=== PATIENT | male | born 1960 | race Caucasian/White ===

== ENCOUNTER 2019-07-16 08:41 | Outpatient (CLI) | payer MEDICARE, MEDICAID, SELFPAY ==
--- NOTE | 2019-07-16 08:57 | CT_ITS ---
WS: [id number] CT scan of the of the abdominal aorta and distal runoff into the lower extremities.. Additional two-d imensional coronal and sagittal reconstruction was performed. MIP images were also performed. 07/16/19 Clinical Data: MODERATE TO SEVERE LEG PAIN Comparison: None. DLP: 1666.[address] scans at [facility] use at least one of these dose optimization techniques: automat ed exposure control; mA and/or kV adjustment per patient size (includes targeted exams where dose is matched to clinical indication); or iterative reconstruction. Findings: Arterial findings: Abdominal aorta is normal in size with calcification in the wall. There is no aneu rysm present. The runoff into the internal and external iliac arteries is normal with further runoff into the deep and superficial femoral arteries. There is calcification of the wall of of all the hailey malissa of the pelvis and lower extremities. The superficial femoral arteries become the popliteal arter ies and then the arteries of the trifurcations of the legs are seen. There is arterial flow seen int o the midcalf portion of both legs.. Below the midportion of both legs there is diminutive flow in th e left leg and no definite flow in the right leg. Abdominal and pelvic findings: The lungs show the changes of chronic lung disease. No nodules, masses or effusions are seen. The yousif er shows probable cysts in the anterior left lobe and 2 small cysts in the posterior aspect of the ri ght lobe. The spleen, pancreas, gallbladder and adrenal glands are normal. The kidneys show equal ashley ateral contrast excretion with small bilateral cortical cysts but no hydronephrosis, mass or renal ca lculi. The small bowel, colon and stomach show no abnormalities. There is no evidence of appendicitis or diverticulitis. There is a large amount of stool in the colon. No abscess, adenopathy, ascites, m ass, obstruction or free air is seen. In the pelvis the bladder is distended. Prostate is enlarged. No inguinal hernia is noted. The bones of the lower thorax and lumbar spine show osteoarthritis. The patient has had a fusion of the bones of the right foot involving the cuboid, cuneiforms and base of the right first metatarsal. CT/CT angio abd aorta runof [id number] Impression: 1. Negative for abdominal aortic aneurysm. 2. No occlusions or stenoses of the arteries of the abdomen or proximal leg. 3. Poor circulation below the middle of both legs. 4. Atherosclerotic change of the abdominal aorta and all the arteries of the pe lvis and lower extremities. 5. Negative for acute intra-abdominal or pelvic abnormalities.
--- NOTE | 2019-07-16 08:57 | CT_ITS ---
WS: [id number] CT of the lumbar spine, additional two-dimensional coronal and sagittal imaging was obtained. 07/16/19 Clinical Data: L LEG WEAKNESS/LOW BACK PAIN Comparison: MRI of the lumbar spine, 06/11/2007. DLP: 2448.[address] scans at [facility] use at least one of these dose optimization techniques: automat ed exposure control; mA and/or kV adjustment per patient size (includes targeted exams where dose is matched to clinical indication); or iterative reconstruction. Findings: There is osteoarthritic change of the lumbar vertebral bodies. Degenerative disc disease at L5-S1 is seen. There are no compression fractures. There is calcification in the wall of the abdomin al aorta but no aneurysm is present. There is a low density area in the lateral aspect of the left ki dney which may represent a cyst. T12-L1: No canal stenosis, disc bulge or foraminal narrowing is seen. L1-L2: There is facet joint hypertrophy without a disc bulge causing mild foraminal stenosis. L2-L3: There is a small central disc bulge with facet joint hypertrophy causing mild canal and forami nal stenosis. L3-L4: There is a minimal central disc bulge with facet joint hypertrophy causing mild canal and fora sharlene stenosis. L4-L5: There is moderate posterior bulging of the disc with facet joint hypertrophy causing canal and foraminal stenosis. L5-S1: There is posterior disc bulging with facet joint hypertrophy causing foraminal and canal steno sis. CT/CT lumbar spine wo con* [id number] Impression: 1. Multilevel disc bulging and facet joint hypertrophy causing canal and forami nal stenosis. 2. Degenerative disc changes at L5-S1. 3. Osteoarthritis of all the lumbar vertebral bodies.
--- NOTE | 2019-07-16 08:57 | CT_ITS ---
WS: [id number] CT scan of the chest without IV contrast, additional two-dimensional coronal and sagittal reconstruct ion was performed. 07/16/2019 Clinical Data: NICOTINE DEPENDENCE Comparison: None. DLP: 775.[address] scans at [facility] use at least one of these dose optimization techniques: automat ed exposure control; mA and/or kV adjustment per patient size (includes targeted exams where dose is matched to clinical indication); or iterative reconstruction. Findings: No nodules, masses or effusions are seen. There is minimal coronary artery calcification. The heart s ize is normal with no pericardial effusion. The pulmonary arterial system and thoracic aorta demonstr ate no abnormalities or dilatations. There is no axillary or significant mediastinal adenopathy. As a small hiatal hernia. The upper abdomen shows low density areas in the liver which are most likely cysts, one in the left l obe and 2 others in the posterior aspect of the right lobe. There is a low density area in the latera l aspect of the left kidney probably a cyst. Degenerative arthritis with spurring of the thoracic mohit tebral bodies seen. CT/CT chest wo con [id number] Impression: 1 Negative for lung nodules or masses. 2. Negative for acute cardiopulmonary disease.
[2019-07-16] MEDS: iohexol 350 mg/mL 100 mL Btl IV (10:17)
== END 2019-07-16 08:42 | disposition home or self-care (01) ==
LOC: RAD 08:53
PROVIDERS: Family Provider Family Medicine; PCP Nurse Practitioner Family; Visit Provider Nurse Practitioner Family
DX: I70.90 Unspecified atherosclerosis (principal); F17.210 Nicotine dependence, cigarettes, uncomplicated; M54.42 Lumbago with sciatica, left side; M47.816 Spondylosis without myelopathy or radiculopathy, lumbar region
CPT/HCPCS: 71250; 72131; 75635

== ENCOUNTER 2019-08-16 07:26 | Day surgery (SDC) | payer MEDICARE, MEDICAID, SELFPAY ==
[2019-08-12 10:03] VITALS: BMI 20.9
--- NOTE | 2019-08-16 07:33 | P.ANESASSM_ITS ---
Pre-Anesthetic Assessment Pre-Anesthetic Assessment: Height/Weight: Height 1.98 m Weight 82.1 kg Preop Diagnosis: Colon CA screening Proposed Procedure: Operation Date: 08/16/19 10:00 Proposed Procedures p Colonoscopy G0104 Z12.11(Not Applicable) - Laz Jefferson MD Last Intake: 22:30 Social: Social History: Tobacco Packs per day: 1/2 Pack years: 25 Exam: Pre-Anes Outpt Exam: alert, oriented x 3, clear to auscultation b ilaterally and regular rate & rhythm Airway: Submandibular: WNL Cervical ROM: WNL MP: 1 Additional comments: upper edentulous, very poor CV/HEM: CV/HEM: HTN Comments: rx'd 18y 2 blocks/2FOS without angina/CAT Hepatic: Hepatic: Hepatitis Comments: dx 3 weeks, started therapy GI: GI: GERD Comments: well controlled on Nexium Metabolic: Metabolic: DM Comments: rx'd 16y, normally does not follow Musc/skel: Musc/skel: Lower Back Pain Comments: left radiculopathy Anesthetic Plan: ASA status: 3 Anesthesia: MAC PFSH Anesthesia PFSH: Social History (Updated 08/04/19 @ 10:44 by PUJA Delgado) Smoking and tobacco status: current every day smoker Alcohol intake: former Adopted: No Lives independently: Yes Marital status: / Number of children: 2 Number of grandchildren: 2 History of recent travel: No Current gender identity: Male Data Anesthesia Cardiac Studies: No Data to Display
[2019-08-16 07:53] VITALS: BP 148/85; PULSE 105; RESP 16; TEMP 36.5; O2SAT 98
[2019-08-16] MEDS: sodium chloride 0.9% 1,000 ML 30 ML (08:07)
[2019-08-16 08:40] LABS: Glucose Point of Care 232 mg/dL (70-110)
--- NOTE | 2019-08-16 09:27 | W.PM.OPSUD ---
Surgery/Procedure H&P Update DATE OF PROCEDURE: August 16, 2019 DATE H&P PERFORMED: 08/02/19 PREOP DIAGNOSIS: c PLANNED PROCEDURE: Operation Date: 08/16/19 10:00 Proposed Procedures p Colonoscopy G0104 Z12.11(Not Applicable) - Laz Jefferson MD
[2019-08-16 11:30] VITALS: BP 92/63; PULSE 70; RESP 16; TEMP 37.1; O2SAT 99
--- NOTE | 2019-08-16 11:35 | ANE.PACU2 ---
 Inpatient post-anesthesia follow up: Airway intact: Yes Vital signs: Temperature 97.7 F Pulse Rate 105 Respiratory Rate 16 Blood Pressure 148/85 Pulse Oximetry 98 Oxygen Delivery Me thod Room Air Oxygen Flow Rate Fraction of Inspir ed Oxygen Hydration adequate: Yes Nausea and vomiting: No Pain level: 1 Mental status: Baseline
[2019-08-16 11:43] VITALS: BP 113/76; PULSE 79; RESP 16; O2SAT 99
== END 2019-08-16 11:59 | disposition home or self-care (01) ==
PROVIDERS: Family Provider Family Medicine; PCP Nurse Practitioner Family; Visit Provider Internal Medicine
PROC: 0DJD8ZZ Inspection of Lower Intestinal Tract, Via Natural or Artificial Opening Endoscopic (ICD-10-PCS; CPT 45378; principal; 2019-08-16 10:00)
DX: Z12.11 Encounter for screening for malignant neoplasm of colon (principal); F17.210 Nicotine dependence, cigarettes, uncomplicated; I10 Essential (primary) hypertension; E11.9 Type 2 diabetes mellitus without complications; Z82.49 Family history of ischemic heart disease and other diseases of the circulatory system; Z83.3 Family history of diabetes mellitus
CPT/HCPCS: 12345; 36416; 45378; 82962; G0121; J2704; J7030

== ENCOUNTER → 2020-06-20 09:41 | Outpatient (BNVA) | payer MEDICARE, MEDICAID, SELFPAY | PROVIDERS: Family Provider Family Medicine; PCP Nurse Practitioner Family; Referring Provider Nurse Practitioner Family; Visit Provider Orthopaedic Surgery | DX: M17.11 Unilateral primary osteoarthritis, right knee (principal) | CPT/HCPCS: 73560; 73565 ==

== ENCOUNTER 2023-03-03 22:26 | Inpatient (IN) | payer MEDICARE, MEDICAID, SELFPAY ==
[2023-03-03] VITALS (7 sets, daily range): BP systolic 174–228; BP diastolic 96–126; PULSE 82–88; RESP 15–23; TEMP 36.4; O2SAT 95–97; BMI 23.6
--- NOTE | 2023-03-03 23:05 | USCV_ITS ---
Abran Abhijit Age: 62 Gender: M : 1960 Exam Date: 03/03/2023 23:49 Ordering Phys: Boo Nicole MD Technologist: NEISHA [place] [facility] [place]: NSTEMI, shortness of breath x 1 week. No history of cardiac intervention per patient. BP: 193 / 96 HR: 78 Rhythm: Sinus Technical Quality: Adequate MEASUREMENTS (Male / Female) Normal Values 2D ECHO LV Diastolic Diameter PLAX 4.7 cm 4.2 - 5.9 / 3.9 - 5.3 cm LV Systolic Diameter PLAX 3.0 cm IVS Diastolic Thickness 2.0 cm 0.6 - 1.0 / 0.6 - 0.9 cm IVS Systolic Thickness 2.6 cm LVPW Diastolic Thickness 2.0 cm 0.6 - 1.0 / 0.6 - 0.9 cm LVPW Systolic Thickness 2.6 cm LVOT Diameter 2.4 cm LV Ejection Fraction 2D Teich 65.3 % LV Ejection Fraction MOD 2C 53.7 % LV Ejection Fraction 2C AL 53.4 % LA Diameter 4.5 cm LA Width 4.7 cm LA Height 4.8 cm RA Width 4.0 cm RA Height 4.3 cm Aorta at Sinotubular Diameter 3.6 cm IVC Diameter 1.9 cm M-MODE Aortic Annulus Diameter 3.6 cm LA Ao Ratio MM 1.2 MV E Point Septal Separation 0.3 cm DOPPLER AV Peak Velocity 123.0 cm/s LVOT Peak Velocity 112.0 cm/s AV Area Cont Eq vti 3.7 cm squared AV Area Cont Eq pk 4.2 cm squared MV Area PHT 3.5 cm squared Mitral E to A Ratio 1.5 MV E' Velocity 57.5 cm/s Mitral E to MV E' Ratio 18.8 Mitral E to LV E' Lateral Ratio 18.2 Mitral E to LV E' Septal Ratio 19.5 TR Peak Velocity 251.7 cm/s TR Peak Gradient 25.3 mmHg TV Peak E Velocity 39.0 cm/s Right Atrial Pressure 10.0 mmHg Pulmonary Artery Systolic Pressu 35.3 mmHg PV Peak Velocity 111.0 cm/s RV Acceleration Time 0.1 s RV Ejection Time 0.3 s RV AcT/ET 0.2 FINDINGS Left Ventricle Normal left ventricular size, systolic function and markedly increased wall thickness, with no regional wall motion abnormalities. Left ventricular ejection fraction is estimated at 65 %. Severe concentric left ventricular hypertrophy. Miya II diastolic dysfunction, moderately elevated filling pressures. Right Ventricle Normal right ventricular size and systolic function. Right ventricular systolic pressure 29 mmHg. Right Atrium Normal right atrial size. Left Atrium Moderately increased left atrial size. Mitral Valve Mild mitral annular calcification. No mitral valve stenosis. Mild mitral valve regurgitation. Aortic Valve Mildly thickened trileaflet aortic valve. No aortic valve regurgitation. No aortic valve stenosis. Tricuspid Valve Structurally normal tricuspid valve. No tricuspid valve stenosis. Trace to mild tricuspid valve regurgitation. Pulmonic Valve Structurally normal pulmonic valve. No pulmonary valve stenosis. Trace pulmonary valve regurgitation. Pericardium No pericardial effusion. Left pleural effusion. Aorta Normal size aortic root and proximal ascending aorta. IVC Normal inferior vena cava. CONCLUSIONS 1. Normal left ventricular size, systolic function and markedly increased wall thickness, with no regional wall motion abnormalities. Left ventricular ejection fraction is estimated at 65 %. Severe concentric left ventricular hypertrophy. Miya II diastolic dysfunction, moderately elevated filling pressures. 2. Normal right ventricular size and systolic function. 3. Moderately increased left atrial size. 4. Mild mitral valve regurgitation. 5. No Prior similar studies to compare. Erlinda Saini MD (Electronically Signed) Final Date: 04 March 2023 11:00 S
--- NOTE | 2023-03-03 23:05 | XRR_ITS ---
PROCEDURE INFORMATION: Exam: XR Chest Exam date and time: 03/03/2023 11:18 PM Age: 62 years old Clinical indication: Shortness of breath; Additional info: SOB TECHNIQUE: Imaging protocol: Radiologic exam of the chest. Views: 1 view. COMPARISON: CT chest wo con [id number] 07/16/2019 9:31 AM FINDINGS: Lungs: There is an airspace opacity in the right lung base, suggestive of consolidation. The left lung is clear. Pleural spaces: Small right pleural effusion can not be excluded. There is no pneumothorax or large pleural effusion. Heart/Mediastinum: Unremarkable. No cardiomegaly. No mediastinal widening. Bones/joints: Unremarkable. XR/XR chest 1V portable [id number] IMPRESSION: Suspected right lower lobe pneumonia.
--- NOTE | 2023-03-03 23:05 | ECG_ITS ---
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 Measurements Intervals [place] Rate: 80 P: 53 VT: 194 QRS: 10 QRSD: 105 T: 172 QT: 396 QTc: 457 Interpretive Statements SINUS RHYTHM WITH OCCASIONAL SUPRAVENTRICULAR PREMATURE COMPLEXES SEPTAL MYOCARDIAL INFARCTION , PROBABLY OLD [40+ ms Q WAVE IN V1/V2] MODERATE T-WAVE ABNORMALITY, CONSIDER LATERAL ISCHEMIA [-0.1+ mV T-WAVE IN I/aVL/V5/V6] No previous ECG available for comparison Electronically Signed On 03-04-2023 12:56:47 CDT by Erlinda Saini M.D. [id number]
--- NOTE | 2023-03-03 23:05 | USCV_ITS ---
Abhijit Osullivan Age: 62 Gender: M : 1960 Exam Date: 03/03/2023 23:25 Ordering Phys: Boo Nicole MD Technologist: NEISHA [place]am [place] [facility] [place]ication: assess for DVT. No history of DVT per patient. HISTORY: shortness of breath PROCEDURES: Venous duplex imaging was performed in bilateral lower extremities. The following venous structures were evaluated: common femoral vein, profunda vein, proximal portion of the greater saphenous vein, superficial femoral vein, and the popliteal vein. In addition, the posterior tibial veins were evaluated. FINDINGS: Normal 2-D Doppler and augmentation and compressibility throughout the lower extremity venous structures. Additional imaging through the proximal calf veins also reveals no thrombus. Limited evaluation of the greater saphenous vein is patent with no thrombus. Complex cystic mass with low level echos and no vascularity measuring 4.7 x 1.7 cm in the right popliteal fossa. CONCLUSIONS No DVT bilateral lower extremities. Right popliteal fossa Barrera's cyst. Dr. Moon Gallegos DO (Electronically Signed) Final Date: 04 March 2023 07:42 S
--- NOTE | 2023-03-03 23:16 | P.HP_ITS ---
Providers/Chief Complaint Admitting Physician: Christin Bennett MD Primary Care Provider: Twila Lazo [employer] Chief Complaint: NSTEMI History of Present Illness Abhijit Osullivan is a 62 year old male with a past med history of uncontrolled hypertension, type 2 diabetes mellitus, diabetic neuropathy, history of right TMA, who presents [facility] for chest pain shortness of breath. Patient tells me for the last few months, he has been having chest pain shortness of breath, he has not followed up with his primary care provider in some time, he has not been taking his medications, he tells me that the chest pain is substernal, nonradiating a pressure-like pain, like something sitting on his chest, currently he is on the nitro drip, pain is 8 out of 10, he tells me that it really has not changed since being transfer from [facility], the only thing that really helped with the pain was the morphine that he received, denies any fevers, but does report chills, does report shortness of breath and bilateral TRAM edema for the last few weeks, which has recently worsened, shortness of breath with exertion, no cough. At [facility], he was diagnosed with an NSTEMI, elevated troponins, given a Plavix load of 600 mg, aspirin 324, started on a heparin drip, initial EKG showed T wave inversions lateral leads, nonspecific ST elevation in V3, he was found to be hypertensive blood pressure 228/109, started on nitroglycerin drip, remains hypertensive systolics 220 diastolic 100s when I examined him in the ICU, his hemoglobin is 7.2, he tells me he has had a colonoscopy within the last few years, no specific findings, denies any bloody or black stools, interestingly his ESR is 91, his CRP is 89.6, and his D-dimer is 1.81, denies0. Any calf pain, any calf swelling but does report bilateral lower extremity swelling, he does report drug use in the past does not report current IV Dilaudid use, last use was a few weeks ago, he has been reporting chills, and low back pain, he reports a history of hepatitis C for which she received treatment, he was also given 40 of Lasix, was given 10 of hydralazine, his magnesium was 1.4 was replaced with magnesium, potassium was low which was replaced, was given his home, Mark, was given a total of 80 mg of Lasix, placed on nicotine patch, currently patient is alert oriented x4, following all commands, systolic blood pressure 220 diastolic 110, not heparin drip, normal sinus rhythm, telemetry, on room air, currently complaining of chest pain 8 out of 10, Review of Systems Const: Reports: chills and body aches; Denies: fever(s) Eyes: Denies: change in vision ENMT: Denies: throat pain Card: Reports: chest pain and swelling of feet/ankles Resp: Reports: dyspnea; Denies: hemoptysis GI: Denies: abdominal pain : Denies: flank pain or difficulty urinating Musc: Reports: back pain; Denies: neck pain Skin/Breast: Denies: rash Neuro: Denies: headache(s), numbness in extremities or weakness in extremities Psych: Reports: anxiety Endo: Denies: polyuria or polydipsia Medications/Allergies Home Medications Medication Instructions Recorded Confirmed Last Taken Type lisinopril 20 mg tablet 20 mg PO DAILY 07/27/19 06/20/20 08/16/19 05:30 History metformin 500 mg tablet,extended 1,000 mg PO BID 07/27/19 06/20/20 08/14/19 History release 24hr pregabalin 75 mg capsule (Lyrica) 75 mg PO BID 07/27/19 06/20/20 08/14/19 History semaglutide 0.25 mg or 0.5 mg (2 0.25 mg SUBCUT Q7D 07/27/19 06/20/20 08/09/19 History mg/1.5 mL) subcutaneous pen injector (Ozempic) amlodipine 10 mg tablet 10 mg PO DAILY 08/02/19 06/20/20 08/16/19 05:30 History diclofenac sodium 1 % topical gel 2 gm topical QID 08/02/19 06/20/20 Unknown History (Voltaren) ergocalciferol (vitamin D2) 1,250 1,250 mcg PO .weekly 08/02/19 06/20/20 Unknown History mcg (50,000 unit) capsule esomeprazole magnesium 20 mg 20 mg PO DAILY 08/02/19 06/20/20 08/14/19 History capsule,delayed release (Nexium) gabapentin 300 mg capsule 300 mg PO TID 08/02/19 06/20/20 08/14/19 History meclizine 25 mg tablet 25 mg PO TID 08/02/19 06/20/20 08/14/19 History mirtazapine 15 mg tablet 15 mg PO DAILY 08/02/19 06/20/20 08/14/19 History ondansetron HCl 8 mg tablet 8 mg PO Q8H 08/02/19 06/20/20 08/14/19 History (Zofran) quetiapine 50 mg tablet (Seroquel) 50 mg PO BID 08/02/19 06/20/20 08/14/19 History sofosbuvir 400 mg-velpatasvir 100 1 tab PO DAILY 08/12/19 06/20/20 08/14/19 History mg tablet (Epclusa) Allergies Allergy/AdvReac Type Severity Reaction Status Date / Time No Known Allergies Allergy Verified 06/20/20 09:36 PFSH Acute PFSH: Medical History (Updated 03/03/23 @ 23:30 by Boo Nicole MD) CHF (congestive heart failure) Depression Diabetes mellitus HTN (hypertension) Hypokalemia Surgical History (Updated 03/03/23 @ 23:23 by Boo Nicole MD) History of transmetatarsal amputation of right foot Family History (Updated 03/03/23 @ 23:23 by Boo Nicole MD) Brother Cancer Diabetes Hypertension Mother Diabetes Hypertension Heart disease CAD (coronary artery disease) Father Heart disease Hypertension Diabetes CAD (coronary artery disease) Sister Hypertension Diabetes Grandmother Diabetes Grandfather Diabetes Social History (Updated 03/03/23 @ 23:24 by Boo Nicole MD) Smoking and tobacco status: current every day smoker Alcohol intake: former Substance/Drug Use: current Substance/Drug use frequency: few times a month Substance/Drug use type: IV Drugs Adopted: No Lives independently: Yes Marital status: / Number of children: 2 Number of grandchildren: 2 Current gender identity: Male Vitals/I&O/Wt Last Vital Signs O2 Del Method Room Air 03/03/23 22:57 Weight last 48 hrs Weight 92.805 kg Physical Exam Const: COMMON NORMALS: no acute distress and patient oriented x3 GENERAL APPEARANCE: cooperative and well developed HENMT: COMMON NORMALS: normocephalic and Normal external nose present HEAD & SCALP: normocephalic FACE & SINUS: normal facial exam NOSE: Normal external nose present Eye: COMMON NORMALS: Equal, round and reactive pupils present, EOMs intact bilaterally, conjunctivae normal and no scleral icterus CONJUNCTIVA: Yes conjunctivae normal PUPIL: Yes Equal, round and reactive pupils present Neck/C-Spine: COMMON NORMALS: full ROM, no lymphadenopathy, no JVD, Thyroid normal and No carotid bruits THYROID: Thyroid normal Lymph: LYMPHATIC: no lymphadenopathy noted Chest: COMMONS NORMALS: normal inspection of the chest Resp: COMMON NORMALS: normal respiratory effort, No retractions and No use of accessory muscles AUSCULTATION: wheezes Cardio: COMMON NORMALS: regular rate, regular rhythm, S1 normal heart sound present, S2 normal heart sound present, No murmurs present (Cardio) and Peripheral pulses 2+ throughout RATE: regular rate RHYTHM: regular rhythm HEART SOUNDS: S1 normal heart sound present and S2 normal heart sound present PERIPHERAL PULSES: Peripheral pulses 2+ throughout GI: COMMON NORMALS: Normal to inspection, nondistended, normoactive bowel sounds present, Soft to palpation and non-tender : COMMON NORMALS: Yes no CVA tenderness BLADDER/KIDNEY EXAM: Yes no CVA tenderness Back/Pelvis: COMMON NORMALS: no CVA tenderness Extremity: COMMON NORMALS: normal to inspection, full ROM and no calf tenderness NARRATIVE EXTREMITY EXAM: 2+ pitting edema Neuro: COMMON NORMALS: patient oriented x3, CN's II-XII intact bilaterally, moves all extremities, no focal motor deficits and no sensory deficits noted MENINGEAL SIGNS: Yes no meningeal signs Psych: COMMON NORMALS: mental status grossly normal, Normal thought process present, cooperative and speech normal APPEARANCE: Yes well kempt SPEECH: Yes normal speech THOUGHT PROCESS: Normal thought process present Skin: COMMON NORMALS: turgor normal and no jaundice GENERAL SKIN EXAM: turgor normal Data EKG 2: My Interpretation: EKG nonspecific ST segment elevation, in V3 only, T wave inversions in lateral leads QT interval 502 ms A&P Assessment and plan (1) Acute systolic congestive heart failure: (2) Acute renal failure: (3) NSTEMI (non-ST elevated myocardial infarction): (4) Hypertensive emergency: (5) Acute anemia: (6) History of hepatitis C: (7) Active intravenous drug use: (8) Elevated erythrocyte sedimentation rate: (9) Back pain: (10) Hypomagnesemia: (11) Hypokalemia: (12) Goals of care, counseling/discussion: (13) Chest pain: (14) ST segment changes on electrocardiogram: (15) Bilateral pleural effusion: (16) Unstable angina: (17) Right lower lobe pulmonary infiltrate: Plan Unstable angina -EKG nonspecific ST segment elevation, in V3 only, T wave inversions in lateral leads QT interval 502 ms -Baseline troponin 131, 2-hour troponin 122 -Chest pain 8 out of 10 -Has received Plavix load of 600 mg, aspirin 325, heparin loaded with heparin drip Plan -Continue aspirin 81 mg -Continue atorvastatin 40 mg -Start metoprolol 50 mg twice daily -For now I would hold off on further dose of Plavix given acute anemia we will consider restarting it in the morning based on clinical progress -Continue heparin drip -Serial EKGs, serial troponins, telemetry monitoring -Cardiac echocardiogram -Creatinine is 2.96, I doubt patient would qualify for a cardiac catheterization currently unless urgently needed or acute ST-T wave changes or life-threatening circumstances, but will discuss with cardiology in the a.m. Acute systolic CHF -With bilateral from edema, chest x-ray bilateral pleural effusions, BNP over 30,000 -Has received 80 of Lasix -We will start Lasix 40 IV every 24 hours starting the morning -Place Mclean catheter -Monitor urine output -Monitor potassium, monitor magnesium -Monitor creatinine Hypertensive emergency -With chest pain, NSTEMI, acute systolic CHF, acute renal failure -Currently on a nitro drip, remains hypertensive systolic greater than 220, diastolic greater than 110 -Continue nitroglycerin drip -Start metoprolol 25 twice daily -Add on p.o. hydralazine -Add on additional p.o. medications Elevated D-dimer, at 1.81, with bilateral extremity edema, will order venous ultrasound Hypomagnesemia 1.4 has received replacement, recheck in a.m. Hypokalemia, has received replacement, recheck in a.m. Acute renal failure -Chronicity unknown, creatinine 2.96 -Likely second unstable angina, hypertensive emergency -Monitor creatinine, monitor urine output Acute anemia -Chronicity unknown -History of colonoscopy which was a normal limits -Denies bloody or black stools -Concern is is that he has received Plavix load as above, aspirin 325 and is on heparin drip -Monitor hemoglobin every 4 hours -Iron studies, ferritin, B12, folate -Protonix, Carafate -Monitor hemodynamics closely Back pain complaints -With IV drug use -With CRP of 89.6, ESR of 92 -Concerns for possible bacteremia with IV drug use, or discitis or vertebral osteomyelitis -We will order CT lumbar and thoracic spine once blood pressures are reasonable, NSTEMI reasonable -HIV, acute hep Right lower lobe infiltrate, seen on chest x-ray pulmonary edema versus true infection -Elevated CRP -No significant leukocytosis -Afebrile -Blood cultures, sputum cultures -Repeat ESR, CRP, Pro-[place], CBC -CT of the chest -For now I will hold off on antibiotics Prolonged QT, received potassium, received magnesium Type 2 diabetes mellitus, A1c, low-dose sliding scale Attestations Medical Necessity Statement*: Patient requires hospitalization, inpatient, greater than 2 midnights, for active chest pain, NSTEMI, EKG changes, acute systolic CHF exacerbation, hypertensive emergency, acute anemia, acute renal failure, IV drug user, fluid overload Coding Level of Care Code Critical Care >/= 30 minutes Critical care time (in minutes): 50 The high probability of a clinically significant, sudden or life threatening deterioration, as referenced in this documentation, required my full and direct attention, intervention and personal management. The critical care time shown is in addition to time spent performing any reported separately billable procedures and includes the following: [x] Data and vital sign review and interpretation [x ] Patient assessment, examination and intervention [x] Medication orders and management [x] Patient/Family updates as able [x] Care Coordination and Documentation. Diagnoses Acute systolic congestive heart failure I50.21 Acute renal failure N17.9 NSTEMI (non-ST elevated myocardial infarction) I21.4 Hypertensive emergency I16.1 Acute anemia D64.9 History of hepatitis C Z86.19 Active intravenous drug use F19.90 Elevated erythrocyte sedimentation rate R70.0 Back pain M54.9 Hypomagnesemia E83.42 Hypokalemia E87.6 Goals of care, counseling/discussion Z71.[address] segment changes on electrocardiogram R94.31 Bilateral pleural effusion J90 Unstable angina I20.0 Right lower lobe pulmonary infiltrate R91.8
[2023-03-03] MEDS: heparin drip 25,000 UNIT/500 ML PREMIX 48 UNIT IV (23:28)
[2023-03-03] MEDS: quetiapine 25 mg Tablet 50 MG PO (23:29)
[2023-03-03] MEDS: atorvastatin 40 mg Tablet PO (23:29)
[2023-03-03] MEDS: metoprolol tartrate 50 mg Tablet PO (23:29)
[2023-03-03] MEDS: pantoprazole 40 mg SDV IVP (23:29)
[2023-03-03] MEDS: sucralfate 1 gm/10 mL Oral Liq UDC PO (23:29)
[2023-03-03] MEDS: nitroglycerin drip 50 MG/250 ML PREMIX 45 MG IV (23:33)
--- NOTE | 2023-03-03 23:51 | PC.NURSE ---
2225 -- Patient admitted as direct admit from [facility]. Reports having chest pain that feels like pressure 8 on a 0-10 pain scale. Blood pressure remains very elevated. Dr. Miguel notified that patient has arrived to ICU room 9. Heparin and NTG drip infusing. NTG infusing at 50mcg/min and Heparin drip infusing at 2400 units/hr. Will titrate nitro as needed. Upon switching heparin and nitroglycerin drips to [facility] medications, doses entered at 2400 units/hr for Heparin and 150mcg/min for NTG.
[2023-03-03 23:58] LABS: Erythrocyte Sedimentation Rate 15 mm/hr (0-10)
[2023-03-04] VITALS (87 sets, daily range): BP systolic 144–208; BP diastolic 71–115; PULSE 58–112; RESP 13–28; TEMP 36.1–36.8; O2SAT 91–98
[2023-03-04 00:16] LABS: INR 1.04 (0.8-1.2)
[2023-03-04 00:24] LABS: Lactic Sepsis W/Reflex 0.7 mmol/L (0.5-2.2)
[2023-03-04 00:27] LABS: Estmated Average Glucose 151; Hemoglobin A1C 6.9 % (4.0-6.0)
[2023-03-04 00:30] LABS: Troponin(5th) Baseline 117 ng/L (0-15)
[2023-03-04 00:32] LABS: Hematocrit 21.7 % (37-53); Platelet Count 213 10^3/cmm (157-399)
[2023-03-04 00:37] LABS: HIV 1 & 2 Antibody Non-Reactive (Non-Reactiv); HIV 1 & 2 Antigen Non-Reactive (Non-Reactiv); Hepatitis A Antibody IgM Non-Reactive (Nonreactive); Hepatitis B Core IgM Non-Reactive (Nonreactive); Hepatitis B Surface Antigen Non-Reactive (Nonreactive); Hepatitis C Virus Antibody Reactive (Nonreactive)
[2023-03-04 00:39] LABS: Partial Thromboplastin Time 168.2 SECONDS (23.9-36.7)
[2023-03-04 00:40] LABS: Procalcitonin 0.29 ng/mL (0-0.5); Thyroid Stimulating Hormone 2.29 uIU/mL (0.27-4.20); Vitamin B12 385 pg/mL (232-1245)
[2023-03-04 00:41] LABS: Folate Level 6.2 ng/mL (4.5-32.2)
[2023-03-04 00:51] LABS: C Reactive Protein 70.6 mg/L (0.0-4.9); Chol HDL Ratio 3.16 mg/dL (1.0-5.00); Cholesterol 136 mg/dL (0-200); Ferritin 496 ng/mL (30-400); HDL Cholesterol 43 mg/dL (60-100); Iron 25 ug/dL (59-158); LDL Cholesterol Calculated 78 mg/dL (50-129); LDL HDL Ratio 1.81 RATIO (0.00-3.22); Percent Saturation 14.2 % (20-50); Total Iron Binding Capacity 175 mcg/dl; Triglycerides 75 mg/dL (0-150); Unsaturated Iron Binding 150 ug/dL (112-347)
[2023-03-04 00:59] LABS: Creatine Phosphokinase 504 U/L (39-308)
[2023-03-04] MEDS: HYDROmorphone 1 mg/mL INJ 1 mL 0.5 MG IVP ×3 (01:04→20:57)
[2023-03-04] MEDS: cloNIDine 0.1 mg Tablet PO (01:04)
[2023-03-04] MEDS: hyDRALAzine 25 mg Tablet PO ×3 (01:04→12:01)
[2023-03-04] MEDS: cefTRIAXone 1,000 MG in sodium chloride 0.9% (plus) 50 ML 100 MG IV ×2 (01:05→23:31)
[2023-03-04] MEDS: doxycycline 100 MG in sodium chloride 0.9% (plus) 100 ML IV (01:58)
--- NOTE | 2023-03-04 02:02 | ECG_ITS ---
[facility] Test Date: 2023-03-04 Pat Name: Abhijit Osullivan Department: Room: ICU09 Gender: Male [employer] Claims Supervisor: : 1960 Requested By: Boo Nicole Order Number: [id number] Wero MD: Erlinda Saini M.D. Measurements Intervals [place] Rate: 65 P: 57 [place]: 209 QRS: -2 QRSD: 105 T: 211 QT: 458 QTc: 479 Interpretive Statements SINUS RHYTHM SEPTAL MYOCARDIAL INFARCTION , PROBABLY OLD [40+ ms Q WAVE IN V1/V2] MARKED T-WAVE ABNORMALITY, CONSIDER ANTEROLATERAL ISCHEMIA [-0.5+ mV T-WAVE IN I/aVL/V3-V6] Compared to ECG 03/04/2023 00:21:49 No significant changes Electronically Signed On 03-04-2023 13:01:32 CDT by Erlinda Saini M.D. [id number]
[2023-03-04 02:21] LABS: Troponin 5 2HR Delta 3.7 ABS# (0-10)
[2023-03-04 02:22] LABS: Troponin 5 2HR 120.7 ng/L (0-15)
[2023-03-04 02:35] LABS: Adenovirus Not Detected (NOT DETECT); Chlamydia Pneumoniae Not Detected (NOT DETECT); Coronavirus 229E,HKU1,NL63,OC4 Not Detected (NOT DETECT); Human Metapneumovirus Not Detected (NOT DETECT); Human Rhinovirus/Enterovirus Not Detected (NOT DETECT); Influenza A Not Detected (NOT DETECT); Influenza A H1 Not Detected (NOT DETECT); Influenza A H1-2009 Not Detected (NOT DETECT); Influenza A H3 Not Detected (NOT DETECT); Influenza B Not Detected (NOT DETECT); Mycoplasma Pneumoniae Not Detected (NOT DETECT); Parainfluenza Virus Type 1 Not Detected (NOT DETECT); Parainfluenza Virus Type 2 Not Detected (NOT DETECT); Parainfluenza Virus Type 3 Not Detected (NOT DETECT); Parainfluenza Virus Type 4 Not Detected (NOT DETECT); Respiratory Syncytial Virus A Not Detected (NOT DETECT); Respiratory Syncytial Virus B Not Detected (NOT DETECT); SARS-COV-2 Not Detected (NOT DETECT)
[2023-03-04 02:40] LABS: Amphetamines Screen Urine Negative (Negative); Barbiturates Screen Urine Negative (Negative); Benzodiazepines Screen Urine Negative (Negative); Cocaine Screen Urine Negative (Negative); Opiate Screen Urine Positive (Negative); PCP Screen Urine Negative (Negative); THC Screen Urine Negative (Negative)
[2023-03-04 03:08] LABS: Basophils % 0.4 %; Eosinophils # 0.1 10^3/uL (0.0-0.8); Eosinophils % 1.3 %; Lymphocytes # 0.9 10^3/uL (0.8-4.8); Lymphocytes % 17.7 %; Mean Corpuscular HGB Conc 31.8 g/dL (30-55); Mean Corpuscular Hemoglobin 29.7 pg (27-33); Mean Corpuscular Volume 93.3 fl (82-101); Mean Platelet Volume 9.6 fL (7.4-10.4); Monocytes # 0.3 10^3/uL (0.2-0.9); Monocytes % 5.8 %; Neutrophils # 3.87 10^3/uL (1.8-7.7); Neutrophils % 74.2 %; Nucleated Red Blood Cells % 0 %; Platelet Count 160 10^3/cmm (157-399); Red Blood Count 2.09 10^6/uL (3.85-5.65); Red Cell Distribution Width 15.1 % (12.1-15.1); White Blood Count 5.21 10^3/uL (3.29-11.43)
[2023-03-04 03:15] LABS: Hematocrit 19.5 % (37-53)
[2023-03-04 03:22] LABS: ABG PCO2 33.2 mmHg (35-45); ABG PH Result 7.46 (7.35-7.45); Arterial Blood Gas Hematocrit 14.2 % (42-52); Base Excess ABG -0.6 mmol/L (-2.0-2.0); Blood Gas Allen Test Pos; Blood Gas Sample Site Radial, right; Blood Gas Sample Type Arterial; HCO3 ABG 23.4 mmol/L (22-26); Oxygen Device ROOM AIR; PO2 ABG 73.5 mmHg (80.0-100.0)
[2023-03-04 03:34] LABS: Procalcitonin 0.33 ng/mL (0-0.5)
[2023-03-04 03:47] LABS: Alanine Aminotransferase 7 U/L (0-41); Albumin Level 2.1 g/dL (3.5-5.2); Alkaline Phosphatase 68 U/L (40-130); Anion Gap 15.2 (5-19); Aspartate Amino Transferase 12 U/L (0-40); Blood Urea Nitrogen 40 mg/dL (8-23); C Reactive Protein 57.4 mg/L (0.0-4.9); Carbon Dioxide 20 mmol/L (22-29); Chloride 104 mmol/L (98-107); Glomerular Filtration Rate 22.9 mL/min (90-130); Glucose 236 mg/dL (65-115); Magnesium 1.4 mg/dL (1.7-2.3); Osmolality Calculated 299 mOsm/kg (285-295); Phosphorus 3.9 mg/dL (2.5-4.5); Potassium 3.2 mmol/L (3.5-5.1); Sodium 136 mmol/L (136-145); Total Bilirubin 0.2 mg/dL (0.15-1.2); Total Protein 5.1 g/dL (6.6-8.7)
[2023-03-04] MEDS: FUROsemide 10 mg/mL SDV 4mL 40 MG IVP (05:05)
--- NOTE | 2023-03-04 05:05 | ECG_ITS ---
[facility] Test Date: 2023-03-04 Pat Name: Abhijit Osullivan Department: Room: [facility] Gender: Male Security Escort: : 1960 Requested By: Boo Nicole Order Number: [id number] Wero MD: Erlinda Saini M.D. Measurements Intervals [place] Rate: 66 P: 67 [place]: 211 QRS: 12 QRSD: 109 T: 190 QT: 449 QTc: 471 Interpretive Statements SINUS RHYTHM WITH FIRST DEGREE AV BLOCK WITH OCCASIONAL SUPRAVENTRICULAR PREMATURE COMPLEXES SEPTAL MYOCARDIAL INFARCTION , PROBABLY OLD [40+ ms Q WAVE IN V1/V2] MARKED T-WAVE ABNORMALITY, CONSIDER ANTEROLATERAL ISCHEMIA [-0.5+ mV T-WAVE IN I/aVL/V3-V6] MODERATE T-WAVE ABNORMALITY, CONSIDER INFERIOR ISCHEMIA [-0.1+ mV T-WAVE IN II/aVF] Compared to ECG 03/04/2023 02:02:42 First degree AV block now present Myocardial infarct finding still present T-wave abnormality still present Possible ischemia still present Electronically Signed On 03-04-2023 12:58:01 CDT by Erlinda Saini M.D. [id number]
[2023-03-04 05:23] LABS: Partial Thromboplastin Time 32.8 SECONDS (23.9-36.7)
[2023-03-04 06:09] LABS: Troponin 5 6HR Delta -0.2 ng/L (0-12)
[2023-03-04 06:10] LABS: Troponin 5 6HR 116.8 ng/L (0-15)
--- NOTE | 2023-03-04 06:14 | PC.NURSE ---
Called lab to check on PTT results that are still showing pending.
--- NOTE | 2023-03-04 06:25 | PC.NURSE ---
Notified Dr. Nicole of PTT of 32.8 and current Troponin of 116.8. Order given to continue to hold heparin drip and recheck PTT in 4 hours.
[2023-03-04] MEDS: aspirin 81 mg EC Tablet PO (07:49)
[2023-03-04] MEDS: insulin lispro 100 unit/1 mL SUBCUT ×2 (07:49→20:58)
[2023-03-04] MEDS: amlodipine 10 mg Tablet PO (07:49)
[2023-03-04 07:50] LABS: Glucose Point of Care 255 mg/dL (70-110)
[2023-03-04] MEDS: acetaminophen 325 mg Tablet 650 MG PO (07:51)
[2023-03-04] MEDS: nitroglycerin drip 50 MG/250 ML PREMIX 24 MG IV ×2 (07:52→19:03)
--- NOTE | 2023-03-04 08:55 | CT_ITS ---
WS: [id number] CT CHEST, ABDOMEN, AND PELVIS TECHNIQUE: Noncontrast CT of the chest, abdomen, and pelvis with coronal and sagittal reformatted giovanni ges. CLINICAL INFORMATION: Neymar COMPARISON: None. DLP: 970.[address] scans at [facility] use at least one of these dose optimization techniques: automated e xposure control; mA and/or kV adjustment per patient size (includes targeted exams where dose is matc hed to clinical indication); or iterative reconstruction. CT CHEST: Moderate bilateral pleural effusions with compressive atelectasis in the lung bases. Patchy infiltrat es in both lower lobes. Correlation for pneumonia. Subsegmental atelectasis in the RIGHT middle lobe. Upper lungs are well aerated. Interstitial edema in the lung bases. Normal caliber thoracic aorta. Aortic calcification. A few slightly prominent peribronchial lymph nod es likely reactive. Aortic calcification. Coronary calcification. No axillary lymphadenopathy.Mild th oracic kyphosis. CT ABDOMEN AND PELVIS: Few small hepatic cysts. Normal GE junction. Noncontrast spleen is normal. Aortic calcification. Fole y catheter. Adrenal glands are normal. No hydronephrosis in either kidney. Small LEFT renal cyst. Noncontrast gallbladder appears normal. Mild rectosigmoid constipation. No evidence of high-grade sma ll or large bowel obstruction. Mild fecal retention in the RIGHT colon. Diffuse body wall anasarca. S mall amount of free fluid in the pelvis. MPRESSION: 1. Moderate bilateral pleural effusions with patchy filtrates in the lung bases. Recommend correlati on for pneumonia. Interstitial edema in the lung bases. 2. Subsegmental atelectasis in RIGHT middle lobe. 3. A few incidental hepatic cysts and renal cysts. 4. No hydronephrosis in either kidney. 5. Mild fecal retention in the RIGHT colon. 6. Mclean catheter. 7. Mild rectosigmoid constipation.
--- NOTE | 2023-03-04 09:18 | P.CONIM_ITS ---
Providers/Reason For Consult Consulting Physician/Specialty*: Jarrell Webster MD/ Cardiology Reason for Consult*: NSTEMI Requesting Physician: Dr Turpin Attending Physician: Nilton Turpin MD Primary Care Provider: Twila LazoP-C History of Present Illness History of Present Illness Abhijit Osullivan is a 62 year old male with past medical history of diabetes, IV drug use, hypertension who presented to hospital with several months of chest pain. He decided to come to hospital as chest pain was severe this time. His blood pressure was very high. Troponins were elevated however have trended down. EKG demonstrates normal sinus rhythm with LVH changes and nonspecific ST- T wave changes. Echocardiogram demonstrates normal LV systolic function with grade 2 diastolic dysfunction. He has severe anemia requiring blood transfusions currently. His renal function is abnormal with creatinine of 2.8 Review of Systems Const: Reports: chills and body aches; Denies: fever(s) Eyes: Denies: change in vision ENMT: Denies: throat pain Card: Reports: chest pain and swelling of feet/ankles Resp: Reports: dyspnea; Denies: hemoptysis GI: Denies: abdominal pain : Denies: flank pain or difficulty urinating Musc: Reports: back pain; Denies: neck pain Skin/Breast: Denies: rash Neuro: Denies: headache(s), numbness in extremities or weakness in extremities Psych: Reports: anxiety Endo: Denies: polyuria or polydipsia Medications/Allergies Home Medications Medication Instructions Recorded Confirmed Last Taken Type albuterol sulfate 90 mcg/actuation 2 puff inhalation Q6H PRN wheezing 03/04/23 03/04/23 Unknown History aerosol inhaler lisinopril 20 1 tab PO DAILY 03/04/23 03/04/23 Unknown History mg-hydrochlorothiazide 25 mg tablet Allergies Allergy/AdvReac Type Severity Reaction Status Date / Time No Known Allergies Allergy Verified 06/20/20 09:36 Current Medications Generic Name Dose Route Start Last Admin Trade Name Freq PRN Reason Stop Dose Admin Acetaminophen 650 mg 03/03/23 23:05 03/04/23 07:51 Acetaminophen 325 Mg Tablet PO 650 mg Q6H PRN Administration Mild/Mod Pain Or Temp >/= 101 Amlodipine Besylate 10 mg 03/04/23 08:00 03/04/23 07:49 Amlodipine 10 Mg Tablet PO 10 mg Q24H LUDA Administration Aspirin 81 mg 03/04/23 09:00 03/04/23 07:49 Aspirin 81 Mg Ec Tablet PO 81 mg DAILY LUDA Administration Atorvastatin Calcium 40 mg 03/03/23 23:15 03/03/23 23:29 Atorvastatin 40 Mg Tablet PO 40 mg BEDTIME LUDA Administration Furosemide 40 mg 03/04/23 06:00 03/04/23 05:05 Furosemide 10 Mg/Ml Sdv 4ml IVP 40 mg Q24H LUDA Administration Hydralazine HCl 25 mg 03/04/23 00:00 03/04/23 05:05 Hydralazine 25 Mg Tablet PO 25 mg Q6H LUDA Administration Hydromorphone HCl 0.5 mg 03/03/23 23:05 03/04/23 05:29 Hydromorphone 1 Mg/Ml Inj 1 Ml IVP 0.5 mg Q4H PRN Administration pain Nitroglycerin/Dextrose 50 mg in 250 mls @ 0 mls/hr 03/03/23 23:15 03/04/23 07:52 Nitroglycerin Drip IV 80 mcg/min .Q0M LUDA 24 mls/hr Administration Protocol Per Protocol Ceftriaxone Sodium 1,000 mg/ 50 mls @ 100 mls/hr 03/04/23 00:30 03/04/23 01:35 Sodium Chloride IV Infused Q24H LUDA Infusion Protocol Doxycycline Hyclate 100 mg/ 100 mls @ 100 mls/hr 03/04/23 00:30 03/04/23 02:58 Sodium Chloride IV Infused Q12H LUDA Infusion Protocol Metoprolol Tartrate 50 mg 03/03/23 23:15 03/03/23 23:29 Metoprolol Tartrate 50 Mg Tablet PO 50 mg Q12H LUDA Administration Pantoprazole Sodium 40 mg 03/03/23 23:15 03/03/23 23:29 Pantoprazole 40 Mg Sdv IVP 40 mg Q12H LUDA Administration Quetiapine Fumarate 50 mg 03/03/23 23:15 03/03/23 23:29 Quetiapine 25 Mg Tablet PO 50 mg Q24H LUDA Administration Sucralfate 1 gm 03/03/23 23:15 03/03/23 23:29 Sucralfate 1 Gm/10 Ml Oral Liq Udc PO 1 gm Q12H LUDA Administration PFSH Acute PFSH: Medical History CHF (congestive heart failure) Depression Diabetes mellitus History of hepatitis C HTN (hypertension) Hypokalemia IV drug abuse Surgical History History of surgery on arm Tumor removal 2003 History of transmetatarsal amputation of right foot S/P foot surgery 1997 Family History Brother Cancer Diabetes Hypertension Mother Diabetes Hypertension Heart disease CAD (coronary artery disease) Father Heart disease Hypertension Diabetes CAD (coronary artery disease) Sister Hypertension Diabetes Grandmother Diabetes Grandfather Diabetes Social History Smoking and tobacco status: current every day smoker Alcohol intake: former Substance/Drug Use: current Substance/Drug use frequency: few times a month Substance/Drug use type: IV Drugs Adopted: No Lives independently: Yes Marital status: / Number of children: 2 Number of grandchildren: 2 Current gender identity: Male Vitals/I&O/Wt Last Vital Signs Temp 98.2 F 03/04/23 08:05 Pulse 77 03/04/23 08:00 Resp 16 03/04/23 08:00 BP 187/100 03/04/23 08:00 Pulse Ox 94 03/04/23 06:41 O2 Del Method Room Air 03/04/23 06:00 03/03/23 03/04/23 03/04/23 22:59 06:59 14:59 Intake Total 620.05 / 620.05 80.4 / 80.4 Output Total 725 / 725 Balance -104.95 / -104.95 80.4 / 80.4 Weight last 48 hrs Weight 206 lb 12.8 oz Weight 204 lb 9.6 oz Physical Exam Narrative: GENERAL: Patient is alert, awake and oriented x3. [] NECK: No jugular vein distension. [] HEENT: No cyanosis. No icterus. No pallor. [] HEART: Regular S1 and S2. Grade 2/6 systolic murmur LUNGS: Clear to auscultate bilaterally. [] CENTRAL NERVOUS SYSTEM: Grossly nonfocal. [] EXTREMITIES: Lower extremities with 1+ edema bilaterally. Urinary Catheter Management: Mclean: Cath Placed During This Visit: yes Reason for Continuing Indwelling Catheter: Accurate Measurement of Urinary Output in Critically Ill Patients Urinary Catheter Date of Insertion: 03/04/23 Urinary Catheter Time of Insertion: 01:25 Data 03/05/23 03:59 03/05/23 03:59 Micro: Microbiology 03/03/23 23:48 Blood Culture - Preliminary Blood SPECIMEN COLLECTED 03/03/23 23:48 Blood Culture - Preliminary Blood SPECIMEN COLLECTED A&P Assessment and plan (1) Diastolic congestive heart failure: (2) Chronic kidney disease: (3) Type 2 diabetes mellitus: (4) Chest pain: (5) Acute renal failure: (6) Elevated troponin: Plan Patient has complex history. Has been having chest discomfort episodes. Trop onin levels are elevated however it is in the setting of renal dysfunction and hypertensive urgency/emergency. It could be related to demand ischemia with normal LV systolic function on echocardiogram. Transfuse blood to keep hemoglobin above 8. GI evaluation. We will recommend proceeding with stress test prior to coronary angiogram given renal dysfunction and anemia. If stress test shows significant abnormality, we can proceed with coronary angiogram. Continue Aspirin. Hold anticoagulation for now. Blood pressure control. Add amlodipine 10mg daily and uptitrate betablocker. Can add hydralazine if still elevated Thank you for involving us with care of this patient. we will continue to fo llow. Please call with questions. Consult Attestations Medical Necessity Statement: Care expected to cross 2 midnights. Coding Level of Care Code Acute Code for [facility] Fwd Diagnoses Diastolic congestive heart failure I50.30 Chronic kidney disease N18.9 Type 2 diabetes mellitus E11.9 Chest pain R07.9 Acute renal failure N17.9 Elevated troponin R79.89
[2023-03-04] MEDS: magnesium sulfate premix 2 GM/50 ML PIGGYBACK IV (09:26)
[2023-03-04] MEDS: isosorbide mononitrate ER 60 mg Tablet PO ×2 (09:26→17:44)
[2023-03-04] MEDS: ipratropium-albuterol 3 mL Neb INHALATION ×2 (09:29→20:00)
[2023-03-04] MEDS: cloNIDine 0.2 mg/24 hr Patch 1 PATCH TRANSDERMA (09:39)
[2023-03-04] MEDS: sucralfate 1 gm/10 mL Oral Liq UDC PO ×2 (12:00→23:31)
[2023-03-04] MEDS: metoprolol tartrate 50 mg Tablet PO (12:01)
[2023-03-04] MEDS: pantoprazole 40 mg SDV IVP ×2 (12:01→23:31)
[2023-03-04] MEDS: lidocaine 1% 5 ML in potassium chloride premix 100 ML 26.25 ML IV (12:02)
--- NOTE | 2023-03-04 12:36 | P.PN_ITS ---
Subjective Subjective: Admitted overnight. H&P and labs appreciated. Examination patient is on 80 of nitro drip. Denies any nausea, vomiting. Patient is awake but slightly drowsy. Able to give complete history and have conversation. Denies any further chest pain. States he has been having chest pain for last 3 weeks but got worse over last 3-day associated with nausea and vomiting. Last bowel movement was 2 days ago. Denies any melena or diarrhea. Stating he is hungry. Has already received monitor blood transfusion. Blood work today morning shows a hemoglobin of 6.2, BMP showing a potassium of 3.2, BUN of 40, creatinine of 2.8, calcium of 7, troponin of 116 with a delta of -0.2, proBNP of more than 52,000, urine drug screen positive for opiates, respiratory viral panel negative, hepatitis C positive. Vitals/I&O/Wt Last Vital Signs Temp 98.2 F 03/04/23 08:05 Pulse 69 03/04/23 09:37 Resp 16 03/04/23 09:34 BP 187/100 03/04/23 08:00 Pulse Ox 96 03/04/23 09:34 O2 Del Method Room Air 03/04/23 09:34 03/03/23 03/04/23 03/04/23 22:59 06:59 14:59 Intake Total 620.05 / 620.05 80.4 / 80.4 Output Total 725 / 725 Balance -104.95 / -104.95 80.4 / 80.4 Weight last 48 hrs Weight 93.803 kg Weight 92.805 kg Physical Exam Narrative: General: No acute distress, AO x3, drowsy HEENT: PERRLA, pupils bilaterally equal and reactive Chest: Normal vesicular breath sounds, fine crackles bilaterally in lower zone, equal good air entry bilaterally CVS: S1-S2 regular, soft pansystolic murmur at apex, no tachycardia, no gallops, no rubs Abdomen: Soft, nontender, no organomegaly, bowel sounds present Neuro: No focal deficits, no facial deformity, AO x3, power 5/5 in all limbs Urinary Catheter Management: Mclean: Cath Placed During This Visit: yes Reason for Continuing Indwelling Catheter: Accurate Measurement of Urinary Output in Critically Ill Patients Urinary Catheter Date of Insertion: 03/04/23 Urinary Catheter Time of Insertion: 01:25 Data 03/04/23 03:00 03/04/23 03:00 Micro: Microbiology 03/03/23 23:48 Blood Culture - Preliminary Blood SPECIMEN COLLECTED 03/03/23 23:48 Blood Culture - Preliminary Blood SPECIMEN COLLECTED A&P Assessment and plan (1) NSTEMI (non-ST elevated myocardial infarction): (2) Hypertensive emergency: (3) Diastolic congestive heart failure: (4) Acute anemia: (5) Chronic kidney disease: (6) Acute renal failure: (7) Type 2 diabetes mellitus: (8) Unstable angina: (9) Hypomagnesemia: (10) Hypokalemia: (11) Right lower lobe pulmonary infiltrate: (12) History of hepatitis C: (13) Back pain: (14) IV drug abuse: (15) Goals of care, counseling/discussion: (16) Chest pain: Plan 62-year-old gentleman past medical history of type 2 diabetes mellitus, noncompliant, post right toes amputation with history of unstable angina presents with ongoing chest pain from outside hospital with concerns for non-ST elevation IA found to have low hemoglobin. Chest pain/unstable angina: Concerns for non-ST elevation IA with elevated troponin though 6-hour cycle negative. Cannot rule out demand ischemia in setting of unstable angina because of hypertensive urgency, ongoing anemia. Consult cardiology. For now continue with aspirin, statin, beta-roshan. Currently on nitro drip. Start on Imdur as per blood pressure. Holding off on heparin drip given anemia. Will switch to prophylactic dose. Consult cardiology. Will discuss further regarding need for cardiac angiogram versus possibility of stress test given creatinine of 2.8 and anemia. Echocardiogram results awaited. So far looks euvolemic. Hypertensive urgency: Goal blood pressure less than 140/90 mmHg. Currently on nitro drip. Add amlodipine 10 mg daily, increase hydralazine to 75 mg every 6 hourly, continue with current dose of Coreg, add clonidine 0.2 patch, add Imdur 60 mg twice daily. Wean nitro drip accordingly. Anemia: Chronic versus possibility of GI bleed though less likely given no melena or hematemesis. Target hemoglobin over 8. Already received monitor blood transfusion. Will order 2 more units. Protonix 40 mg twice daily, Carafate ACHS. Will consult surgery for possible need of EGD and colonoscopy as patient might need cardiac revascularization. Start on liquid diet for now. Will advance diet as per plan for EGD and colonoscopy. Check iron panel, vitamin B12, folate. Congestive heart failure: Systolic versus diastolic. Cardiogram awaited. Strict input output charting. Continue on IV Lasix 40 mg daily. Fluid restriction up to 1500 cc. Mclean catheterization. Renal failure: Acute versus chronic. Do not have baseline renal functions. Cannot rule out chronic kidney disease in setting of uncontrolled type 2 di abetes mellitus along with history of unstable angina and IV drug abuse in the past. CT abdomen pelvis to rule out obstructive nephropathy. Urinalysis, urine lites, urine creatinine. Monitor renal functions daily. Type 2 diabetes mellitus: Noncompliant. Check A1c. Insulin sliding scale at moderate dose protocol. Hypokalemia: Target potassium around 4. Replete 40 mg. Hypomagnesemia: Replete 2 mg of IV magnesium. Target magnesium around 2. Right lower lobe infiltration: Cannot rule out pneumonia. Sputum culture. Check MRSA swab. Follow-up blood cultures. Continue with IV ceftriaxone. Switch to oral doxycycline 100 mg twice daily. History of IV drug abuse/back pain: Cannot rule out discitis. Urine drug screen negative. Denies any active recent IV drug abuse. Follow-up blood culture. Follow-up various CT scans ordered. Goals of care discussion: Patient's daughter will be the DPOA. Full code. Clear liquid diet. Heparin 5000 every 12 hourly for DVT prophylaxis, SCDs. Protonix will suffice as PUD prophylaxis. Continue with ICU care. Attestations Medical Necessity Statement*: Requires further hospitalization for management of hypertensive urgency, severe unstable angina with concerns for non-ST elevation IA, acute anemia, acute on chronic kidney disease while patient requires treatment for multiple organ dysfunction Coding Level of Care Code Critical Care >/= 30 minutes Critical care time (in minutes): 80 The high probability of a clinically significant, sudden or life threatening deterioration, as referenced in this documentation, required my full and direct attention, intervention and personal management. The critical care time shown is in addition to time spent performing any reported separately billable procedures and includes the following: [x] Data and vital sign review and interpretation [x ] Patient assessment, examination and intervention [x] Medication orders and management [x] Patient/Family updates as able [x] Care Coordination and Documentation. Diagnoses NSTEMI (non-ST elevated myocardial infarction) I21.4 Hypertensive emergency I16.1 Diastolic congestive heart failure I50.30 Acute anemia D64.9 Chronic kidney disease N18.9 Acute renal failure N17.9 Type 2 diabetes mellitus E11.9 Unstable angina I20.0 Hypomagnesemia E83.42 Hypokalemia E87.6 Right lower lobe pulmonary infiltrate R91.8 History of hepatitis C Z86.19 Back pain M54.9 IV drug abuse F19.10 Goals of care, counseling/discussion Z71.89 Chest pain R07.9
--- NOTE | 2023-03-04 12:52 | PM.CONSULT ---
Providers/Reason For Consult Consulting Physician/Specialty*: General surgery Reason for Consult*: Acute blood loss anemia Attending Physician: Nilton Turpin MD Primary Care Provider: Twila Lazo History of Present Illness History of Present Illness Abhijit Osullivan is a 62 year old male with several medical comorbidities, including drug abuse, chronic kidney disease, heart failure. He is admitted to the hospital with a possible myocardial infarction. Upon admission he was noted to have a dropping hemoglobin after receiving a loading dose of Plavix and being started on a heparin drip. Therefore I was consulted for the concern of possible GI bleed. Of note at the moment of my evaluation patient denies hematemesis or melena, he states he feels fine, discussion with cardiology regarding treatment has determined that patient should undergo a nuclear stress stress before deciding on proceeding to the cardiac La[employer]. Review of Systems Narrative: 10 point review of systems was deferred due to the patient clinical condition Medications/Allergies Home Medications Medication Instructions Recorded Confirmed Last Taken Type albuterol sulfate 90 mcg/actuation 2 puff inhalation Q6H PRN wheezing 03/04/23 03/04/23 Unknown History aerosol inhaler lisinopril 20 1 tab PO DAILY 03/04/23 03/04/23 Unknown History mg-hydrochlorothiazide 25 mg tablet Allergies Allergy/AdvReac Type Severity Reaction Status Date / Time No Known Allergies Allergy Verified 06/20/20 09:36 Current Medications Generic Name Dose Route Start Last Admin Trade Name Freq PRN Reason Stop Dose Admin Acetaminophen 650 mg 03/03/23 23:05 03/04/23 07:51 Acetaminophen 325 Mg Tablet PO 650 mg Q6H PRN Administration Mild/Mod Pain Or Temp >/= 101 Albuterol/Ipratropium 3 ml 03/03/23 23:16 03/04/23 09:29 Ipratropium-Albuterol 3 Ml Neb INHALATION 3 ml Q4H PRN Administration SHORTNESS OF BREATH Amlodipine Besylate 10 mg 03/04/23 08:00 03/04/23 07:49 Amlodipine 10 Mg Tablet PO 10 mg Q24H LUDA Administration Aspirin 81 mg 03/04/23 09:00 03/04/23 07:49 Aspirin 81 Mg Ec Tablet PO 81 mg DAILY LUDA Administration Atorvastatin Calcium 40 mg 03/03/23 23:15 03/03/23 23:29 Atorvastatin 40 Mg Tablet PO 40 mg BEDTIME LUDA Administration Clonidine HCl 1 patch 03/04/23 10:00 03/04/23 09:46 Clonidine 0.2 Mg/24 Hr Patch TRANSDERMA Not Given Q7D LUDA Furosemide 40 mg 03/04/23 06:00 03/04/23 05:05 Furosemide 10 Mg/Ml Sdv 4ml IVP 40 mg Q24H LUDA Administration Hydralazine HCl 25 mg 03/04/23 00:00 03/04/23 12:01 Hydralazine 25 Mg Tablet PO 25 mg Q6H LUDA Administration Hydromorphone HCl 0.5 mg 03/03/23 23:05 03/04/23 05:29 Hydromorphone 1 Mg/Ml Inj 1 Ml IVP 0.5 mg Q4H PRN Administration pain Nitroglycerin/Dextrose 50 mg in 250 mls @ 0 mls/hr 03/03/23 23:15 03/04/23 07:52 Nitroglycerin Drip IV 80 mcg/min .Q0M LUDA 24 mls/hr Administration Protocol Per Protocol Ceftriaxone Sodium 1,000 mg/ 50 mls @ 100 mls/hr 03/04/23 00:30 03/04/23 01:35 Sodium Chloride IV Infused Q24H LUDA Infusion Protocol Doxycycline Hyclate 100 mg/ 100 mls @ 100 mls/hr 03/04/23 00:30 03/04/23 02:58 Sodium Chloride IV Infused Q12H LUDA Infusion Protocol Lidocaine HCl 5 ml/ Potassium 105 mls @ 26.25 mls/hr 03/04/23 09:30 03/04/23 12:02 Chloride IV 03/04/23 13:29 26.25 mls/hr ONCE ONE Administration Insulin Human Lispro 0 unit 03/04/23 12:00 03/04/23 12:04 Insulin Lispro 100 Unit/1 Ml SUBCUT Not Given WM&BEDTIME [facility] Protocol Isosorbide Mononitrate 60 mg 03/04/23 09:00 03/04/23 09:26 Isosorbide Mononitrate Er 60 Mg Tablet PO 60 mg DAILY LUDA Administration Metoprolol Tartrate 50 mg 03/03/23 23:15 03/04/23 12:01 Metoprolol Tartrate 50 Mg Tablet PO 50 mg Q12H LUDA Administration Pantoprazole Sodium 40 mg 03/03/23 23:15 03/04/23 12:01 Pantoprazole 40 Mg Sdv IVP 40 mg Q12H LUDA Administration Quetiapine Fumarate 50 mg 03/03/23 23:15 03/03/23 23:29 Quetiapine 25 Mg Tablet PO 50 mg Q24H LUDA Administration Sucralfate 1 gm 03/03/23 23:15 03/04/23 12:00 Sucralfate 1 Gm/10 Ml Oral Liq Udc PO 1 gm Q12H LUDA Administration PFSH Acute PFSH: Medical History CHF (congestive heart failure) Depression Diabetes mellitus History of hepatitis C HTN (hypertension) Hypokalemia IV drug abuse Surgical History (Updated 03/04/23 @ 12:40 by Nilton Turpin MD) History of surgery on arm Tumor removal 2003 History of transmetatarsal amputation of right foot S/P foot surgery 1997 Family History (Updated 03/03/23 @ 23:23 by Boo Nicole MD) Brother Cancer Diabetes Hypertension Mother Diabetes Hypertension Heart disease CAD (coronary artery disease) Father Heart disease Hypertension Diabetes CAD (coronary artery disease) Sister Hypertension Diabetes Grandmother Diabetes Grandfather Diabetes Social History (Updated 03/03/23 @ 23:24 by Boo Nicole MD) Smoking and tobacco status: current every day smoker Alcohol intake: former Substance/Drug Use: current Substance/Drug use frequency: few times a month Substance/Drug use type: IV Drugs Adopted: No Lives independently: Yes Marital status: / Number of children: 2 Number of grandchildren: 2 Current gender identity: Male Vitals/I&O/Wt Last Vital Signs Temp 98.2 F 03/04/23 08:05 Pulse 69 03/04/23 09:37 Resp 16 03/04/23 09:34 BP 187/100 03/04/23 08:00 Pulse Ox 96 03/04/23 09:34 O2 Del Method Room Air 03/04/23 09:34 03/03/23 03/04/23 03/04/23 22:59 06:59 14:59 Intake Total 620.05 / 620.05 80.4 / 80.4 Output Total 725 / 725 Balance -104.95 / -104.95 80.4 / 80.4 Weight last 48 hrs Weight 206 lb 12.8 oz Weight 204 lb 9.6 oz Physical Exam Narrative: General : Patient is well developed , appears frail, oriented x3 Head : Normal cephalic, a-traumatic. Nose : Mucous membranes are without erythema. Lungs : Equal chest rise bilaterally, no use of accessory muscles, trachea is midline. CV : Rate and rhythm are normal. Abdomen : Soft, ND, NT, no g/r/m Extremities : Bilateral lower extremity edema noted Back : non-tender to palpation, no CVA tenderness. Urinary Catheter Management: Mclean: Cath Placed During This Visit: yes Reason for Continuing Indwelling Catheter: Accurate Measurement of Urinary Output in Critically Ill Patients Urinary Catheter Date of Insertion: 03/04/23 Urinary Catheter Time of Insertion: 01:25 Data 03/04/23 03:00 03/04/23 03:00 Micro: Microbiology 03/03/23 23:48 Blood Culture - Preliminary Blood SPECIMEN COLLECTED 03/03/23 23:48 Blood Culture - Preliminary Blood SPECIMEN COLLECTED A&P Assessment and plan (1) Diastolic congestive heart failure: (2) Chronic kidney disease: (3) ST segment changes on electrocardiogram: (4) IV drug abuse: (5) Acute anemia: Plan After a complete history, physical examination and review of all available clinical data the following is my assessment. I think it would be appropriate to proceed with upper and lower endoscopy for evaluation of any possible source of bleeding from the GI standpoint. As patient has not to have a drop in hemoglobin after being started on anticoagulation. If bleeding is identified during endoscopy, bleeding control can be achieved and patient can be resumed on anticoagulation that he may need after cardiac intervention. At the moment patient is in poor clinical condition, he is very high risk for any kind of intervention. Therefore anesthesia evaluation is required before proceeding to the endoscopy suite. I have offer the patient with diagnostic endoscopy. I have discussed all the risks and benefits of the endoscopy. Including, the risk of perforation of the esophagus, stomach, duodenum or colon requiring surgical intervention, rectal bleeding, incomplete colonoscopy, missed polyps, need for additional procedures. Patient shows understanding and wishes to proceed. I have also informed the patient that this is an emergent procedure and therefore there is increased risk for complications as colon prep May not be ideal. After discussion with primary team have decided that the best approach will be to provide prep to the patient tomorrow and I will discuss with the patient first team on , after his scope if there is no evidence of bleeding he will be cleared from the GI standpoint to undergo any kind of intervention or receive additional anticoagulation. I will be available in the case of a urgent endoscopy as needed in the next 24 hours. Patient will receive prep tomorrow with mag citrate and docusate, in the interim he can have clear liquid diet, continue the pantoprazole and Carafate. Coding Level of Care Code 77761 Diagnoses Diastolic congestive heart failure I50.30 Chronic kidney disease N18.9 ST segment changes on electrocardiogram R94.31 IV drug abuse F19.10 Acute anemia D64.9
--- NOTE | 2023-03-04 14:00 | CT_ITS ---
WS: [id number] CT LUMBAR SPINE TECHNIQUE: Noncontrast CT of the lumbar spine with coronal and sagittal reformatted images. CLINICAL INFORMATION: back pain COMPARISON: CT lumbar 07/16/2019 DLP: 970.[address] scans at [facility] use at least one of these dose optimization techniques: automated e xposure control; mA and/or kV adjustment per patient size (includes targeted exams where dose is matc hed to clinical indication); or iterative reconstruction. FINDINGS: Mild lumbar curve. No acute compression. Disc narrowing worse at L5-S1. No evidence of discitis/osteo myelitis. No evidence of paravertebral abscess. L1-L2: Moderate facet arthropathy. Spinal canal and foramen are patent. L2-L3: Mild annular bulging. Slight effacement of the ventral thecal sac. Moderate facet arthropathy. Spinal canal and foramen are patent. L3-L4: Mild annular bulging. Mild central canal stenosis. Slight narrowing of the subarticular recess bilaterally. Moderate facet arthropathy. Mild LEFT greater than RIGHT foraminal narrowing. L4-L5: Shallow central disc protrusion with moderate central canal stenosis. Slight impingement trave rsing L5 nerve roots bilaterally. Moderate facet arthropathy ligamentum flavum hypertrophy. Mild LEFT foraminal narrowing. L5-S1: Disc osteophyte complex with endplate ridging. Slight impingement on the traversing RIGHT S1 n erve root. Moderate facet arthropathy. Mild to moderate bilateral bony foraminal narrowing. IMPRESSION: 1. Mild lumbar curve. No acute compression. 2. Moderate central canal stenosis L4-5 due to shallow central disc protrusion in combination with f acet arthropathy and ligamentum flavum hypertrophy. Impingement traversing RIGHT greater than LEFT L5 nerve roots. 3. Mild central canal stenosis L3-4. 4. Disc osteophyte complex L5-S1 slightly impinges the RIGHT S1 nerve root. 5. Mild to moderate bony foraminal narrowing described above.
--- NOTE | 2023-03-04 14:00 | CT_ITS ---
WS: [id number] CT THORACIC SPINE TECHNIQUE: Noncontrast CT of the thoracic spine with coronal and sagittal reformatted images. CLINICAL INFORMATION: pain COMPARISON: None. DLP: 970.[address] scans at [facility] use at least one of these dose optimization techniques: automated e xposure control; mA and/or kV adjustment per patient size (includes targeted exams where dose is matc hed to clinical indication); or iterative reconstruction. FINDINGS: Mild thoracic curve. Moderate thoracic kyphosis. Hypertrophic changes thoracic spine. No evidence of discitis or osteomyelitis. No acute compression fractures. No evidence of paravertebral abscess. Mode rate spondylitic changes. Moderate facet arthropathy with ligamentum flavum hypertrophy in the lower thoracic spine. Moderate bilateral pleural effusions. IMPRESSION: 1. Moderate spondylitic changes with mild thoracic curve and kyphosis. 2. No acute compression fractures. 3. No high-grade central canal stenosis. 4. No evidence of discitis or osteomyelitis. 5. Moderate facet arthropathy ligamentum flavum hypertrophy in the lower thoracic spine. 6. Partially visualized moderate bilateral pleural effusions.
--- NOTE | 2023-03-04 14:00 | CT_ITS ---
WS: [id number] CT CERVICAL, THORACIC, AND LUMBAR SPINE TECHNIQUE: Noncontrast CT of the cervical thoracic and lumbar spine with coronal and sagittal reforma tted images. CLINICAL INFORMATION: pain COMPARISON: None. DLP: 178.[address] scans at [facility] use at least one of these dose optimization techniques: automated e xposure control; mA and/or kV adjustment per patient size (includes targeted exams where dose is matc hed to clinical indication); or iterative reconstruction. FINDINGS: Mild cervical curve. Mild spondylitic changes cervical spine. No high-grade central canal stenosis. No evidence of discitis/osteomyelitis. C2-C3: Mild facet arthropathy. Spinal canal and foramen are patent. C3-C4: Moderate facet arthropathy. Mild LEFT and no significant RIGHT foraminal narrowing. Spinal can al is patent. C4-C5: Mild disc osteophyte complex. Moderate facet arthropathy. Mild LEFT foraminal narrowing. Spina l canal is patent. C5-C6: Disc osteophyte complex with endplate ridging. Moderate facet arthropathy. Mild LEFT and no si gnificant RIGHT foraminal narrowing. C6-C7: Moderate facet arthropathy. Spinal canal and foramina are patent. C7-T1: No significant disc bulging. Spinal canal and foramen are patent. Visualized posterior nasopharynx: Normal. Prevertebral soft tissues: Normal. IMPRESSION: 1. Mild spondylitic changes cervical spine. No high-grade central canal stenosis. 2. No evidence of discitis/osteomyelitis. No evidence of paravertebral abscess. 3. Mild bony foraminal narrowing described above.
[2023-03-04] MEDS: hyDRALAzine 50 mg Tablet PO (15:39)
[2023-03-04] MEDS: HYDROcodone-acetaminophen 5-325 mg Tablet 1 TAB PO ×2 (16:21→23:38)
[2023-03-04 17:40] LABS: Glucose Point of Care 157 mg/dL (70-110)
[2023-03-04] MEDS: doxycycline 100 mg Tablet PO (17:44)
[2023-03-04 18:33] LABS: Hematocrit 30.4 % (37-53)
[2023-03-04 19:22] LABS: Potassium, Radom Urine 19 mmol/L; Urine Creatinine 38 mg/dL (39-259); Urine Random Chloride 108 mmol/L; Urine Random Sodium 106 mmol/L
[2023-03-04 20:41] LABS: Eosinophil Urine No Eosinophils Seen; Urine Eosinophil Count 0 (0-0)
[2023-03-04] MEDS: carvedilol 12.5 mg Tablet PO (20:57)
[2023-03-04] MEDS: atorvastatin 40 mg Tablet PO (20:57)
[2023-03-04] MEDS: hyDRALAzine 25 mg Tablet 75 MG PO (20:57)
[2023-03-04 21:07] LABS: Glucose Point of Care 196 mg/dL (70-110)
[2023-03-04] MEDS: quetiapine 25 mg Tablet 50 MG PO (23:31)
--- NOTE | 2023-03-04 23:33 | US_ITS ---
WS: [id number] ULTRASOUND RENAL TECHNIQUE: Ultrasound examination of both kidneys. CLINICAL INFORMATION: connie COMPARISON: None. FINDINGS: Bilateral pleural effusions partially visualized. Patient voided just prior to examination. RIGHT: Right kidney is normal in size and appearance. Echogenicity: Normal. Cortical thickness: 1.9 cm; Normal. Hydronephrosis: None. Perinephric fluid: None. Right kidney measures: 11.3 cm x 7.3 cm x 6.0 cm. LEFT: Small simple cyst LEFT kidney measuring 1.7 x 1.3 cm Left kidney is normal in size and appearance. Echogenicity: Normal. Cortical thickness: 2.1 cm; Normal. Hydronephrosis: None. Perinephric fluid: None. Left kidney measures: 11.7 cm x 7.0 cm x 5.8 cm. Normal visualized aorta. IMPRESSION: 1. No hydronephrosis in either kidney. 2. LEFT simple renal cyst upper pole medially measuring 1.4 x 1.7 cm 3. No hydronephrosis in either kidney. 4. Unable to evaluate for ureteral jets due to patient motion. 5. Post void bladder residual 97 cc. Patient voided just prior to examination.
[2023-03-05] VITALS (80 sets, daily range): BP systolic 120–214; BP diastolic 69–118; PULSE 46–93; RESP 14–33; TEMP 36.4–36.8; O2SAT 88–98
[2023-03-05 01:12] LABS: Hematocrit 25.5 % (37-53)
[2023-03-05 04:24] LABS: Basophils % 0.5 %; Eosinophils # 0.1 10^3/uL (0.0-0.8); Eosinophils % 2.4 %; Hematocrit 24.3 % (37-53); Lymphocytes # 1.5 10^3/uL (0.8-4.8); Lymphocytes % 25.9 %; Mean Corpuscular HGB Conc 33.7 g/dL (30-55); Mean Corpuscular Hemoglobin 29.6 pg (27-33); Mean Corpuscular Volume 87.7 fl (82-101); Mean Platelet Volume 9.6 fL (7.4-10.4); Monocytes # 0.4 10^3/uL (0.2-0.9); Monocytes % 7.4 %; Neutrophils # 3.67 10^3/uL (1.8-7.7); Neutrophils % 63.3 %; Nucleated Red Blood Cells % 0 %; Platelet Count 200 10^3/cmm (157-399); Red Blood Count 2.77 10^6/uL (3.85-5.65); Red Cell Distribution Width 15.1 % (12.1-15.1)
[2023-03-05 04:42] LABS: Alanine Aminotransferase 6 U/L (0-41); Albumin Level 2.4 g/dL (3.5-5.2); Alkaline Phosphatase 61 U/L (40-130); Anion Gap 13.5 (5-19); Aspartate Amino Transferase 10 U/L (0-40); Blood Urea Nitrogen 38 mg/dL (8-23); Calcium 7.3 mg/dL (8.5-10.5); Carbon Dioxide 23 mmol/L (22-29); Chloride 105 mmol/L (98-107); Globulin 2.7 g/dL (1.3-4.6); Glomerular Filtration Rate 22.9 mL/min (90-130); Glucose 118 mg/dL (65-115); Magnesium 1.5 mg/dL (1.7-2.3); Osmolality Calculated 296 mOsm/kg (285-295); Phosphorus 4.3 mg/dL (2.5-4.5); Potassium 3.5 mmol/L (3.5-5.1); Sodium 138 mmol/L (136-145); Total Bilirubin 0.2 mg/dL (0.15-1.2); Total Protein 5.1 g/dL (6.6-8.7)
[2023-03-05] MEDS: HYDROmorphone 1 mg/mL INJ 1 mL 0.5 MG IVP ×2 (05:01→09:04)
[2023-03-05] MEDS: FUROsemide 10 mg/mL SDV 4mL 40 MG IVP (05:02)
[2023-03-05] MEDS: nitroglycerin drip 50 MG/250 ML PREMIX 24 MG IV (05:02)
[2023-03-05] MEDS: sodium chloride 0.9% 1,000 ML 30 ML IV (07:43)
[2023-03-05] MEDS: ipratropium-albuterol 3 mL Neb INHALATION ×2 (08:07→20:02)
[2023-03-05 08:30] LABS: Glucose Point of Care 153 mg/dL (70-110)
[2023-03-05] MEDS: doxycycline 100 mg Tablet PO ×2 (08:43→17:52)
[2023-03-05] MEDS: hyDRALAzine 25 mg Tablet 75 MG PO (08:43)
[2023-03-05] MEDS: isosorbide mononitrate ER 60 mg Tablet PO ×2 (08:43→11:17)
[2023-03-05] MEDS: amlodipine 10 mg Tablet PO (08:43)
[2023-03-05] MEDS: aspirin 81 mg EC Tablet PO (08:44)
[2023-03-05] MEDS: carvedilol 12.5 mg Tablet PO ×2 (08:47→17:52)
[2023-03-05] MEDS: bisacodyl 5 mg Tablet 10 MG PO ×2 (08:47→14:53)
[2023-03-05] MEDS: insulin lispro 100 unit/1 mL SUBCUT ×3 (08:49→21:07)
[2023-03-05 09:09] LABS: Hematocrit 26.4 % (37-53)
--- NOTE | 2023-03-05 10:47 | P.PN_ITS ---
Subjective Subjective: Patient has no chest pain at this time. Blood pressure is till elevated. Vitals/I&O/Wt Last Vital Signs Temp 98.3 F 03/05/23 08:30 Pulse 67 03/05/23 09:00 Resp 20 H 03/05/23 09:04 BP 198/102 03/05/23 09:00 Pulse Ox 95 03/05/23 09:04 O2 Del Method Room Air 03/05/23 08:30 O2 Flow Rate 2 03/04/23 16:06 03/04/23 03/05/23 03/05/23 22:59 06:59 14:59 Intake Total 1005 / 1085.4 621.2 / 1706.6 485.80 / 485.80 Output Total 2200 / 2200 1000 / 3200 900 / 900 Balance -1195 / -1114.6 -378.8 / -1493.4 -414.20 / -414.20 Weight last 48 hrs Weight 214 lb 5 oz Weight 206 lb 12.8 oz Weight 204 lb 9.6 oz Physical Exam Narrative: GENERAL: Patient is alert, awake and oriented x3. [] NECK: No jugular vein distension. [] HEENT: No cyanosis. No icterus. No pallor. [] HEART: Regular S1 and S2. Grade 2/6 systolic murmur LUNGS: Clear to auscultate bilaterally. [] CENTRAL NERVOUS SYSTEM: Grossly nonfocal. [] EXTREMITIES: Lower extremities with 1+ edema bilaterally. Urinary Catheter Management: Mclean: Cath Placed During This Visit: yes Reason for Continuing Indwelling Catheter: Accurate Measurement of Urinary Output in Critically Ill Patients Urinary Catheter Date of Insertion: 03/04/23 Urinary Catheter Time of Insertion: 01:25 Data 03/06/23 06:09 03/06/23 06:09 Micro: Microbiology 03/04/23 01:25 Bacterial Antigens - Final Urine,Clean Catch 03/03/23 23:48 Blood Culture - Preliminary Blood NEGATIVE TO DATE 03/03/23 23:48 Blood Culture - Preliminary Blood NEGATIVE TO DATE A&P Assessment and plan (1) Diastolic congestive heart failure: (2) Chronic kidney disease: (3) Type 2 diabetes mellitus: (4) Chest pain: (5) Acute renal failure: (6) Elevated troponin: Plan Patient has complex history. Has been having chest discomfort episodes. Troponin levels are elevated however it is in the setting of renal dysfunction and hypertensive urgency/emergency. It could be related to demand ischemia with normal LV systolic function on echocardiogram. Hemoglobin over 8 today. We will recommend proceeding with stress test prior to coronary angiogram given renal dysfunction and anemia. If stress test shows significant abnormality, we can proceed with coronary angiogram Patient is at acceptable cardiac risk for EGD as any invasive procedure/stenting will require prison antiplatelet therapy Continue Aspirin. Hold anticoagulation for now. Blood pressure control. Thank you for involving us with care of this patient. we will continue to follow. Please call with questions. Attestations Medical Necessity Statement*: Care expected to cross 2 midnights. Coding Level of Care Code Acute Code for Chg Fwd Diagnoses Diastolic congestive heart failure I50.30 Chronic kidney disease N18.9 Type 2 diabetes mellitus E11.9 Chest pain R07.9 Acute renal failure N17.9 Elevated troponin R79.89
[2023-03-05] MEDS: cloNIDine 0.3 mg/24 hr Patch 1 PATCH TRANSDERMA (11:17)
[2023-03-05] MEDS: sucralfate 1 gm/10 mL Oral Liq UDC PO (11:20)
[2023-03-05] MEDS: pantoprazole 40 mg SDV IVP (11:21)
[2023-03-05] MEDS: hyDRALAzine 25 mg Tablet 100 MG PO ×3 (12:06→21:06)
--- NOTE | 2023-03-05 12:07 | PM.MISC ---
Miscellaneous Note Purpose of Documentation: Update on clinical status Note: Patient stable this morning. Hemoglobin has trended up to 8, patient denies any hematemesis or melena. She is scheduled for EGD and colonoscopy tomorrow. We will do bowel prep today with mag citrate and bisacodyl.
[2023-03-05 12:10] LABS: Glucose Point of Care 158 mg/dL (70-110)
[2023-03-05] MEDS: magnesium citrate Btl 296 mL PO ×2 (12:13→21:13)
[2023-03-05] MEDS: nitroglycerin drip 50 MG/250 ML PREMIX 30 MG IV (13:23)
[2023-03-05] MEDS: HYDROcodone-acetaminophen 5-325 mg Tablet 1 TAB PO ×2 (14:56→21:13)
[2023-03-05 16:55] LABS: Hematocrit 29.4 % (37-53)
--- NOTE | 2023-03-05 17:23 | P.PN_ITS ---
Subjective Subjective: Seen multiple times during the day. No acute events overnight. On examination patient lying comfortably in bed,, denies any nausea vomiting, headache, chest pain. No episode of melena. Has not had a bowel movement during hospitalization. Good urine output in last 24 hours up to around 1800 to 2 L. Patient blood pressures remain elevated. Currently around 170 systolic on 125 of IV nitro. Blood work today shows hemoglobin improving posttransfusion yesterday 10.5 with 8.3 today and then repeat at cannulating in the afternoon, no leukocytosis, CMP showing no electrode abnormalities, improvement in hypokalemia, stable creatinine of 2.8 with BUN improving down to 38 Vitals/I&O/Wt Last Vital Signs Temp 98.3 F 03/05/23 08:30 Pulse 64 03/05/23 13:45 Resp 18 03/05/23 13:45 BP 141/72 03/05/23 13:45 Pulse Ox 92 03/05/23 13:45 O2 Del Method Room Air 03/05/23 13:45 O2 Flow Rate 2 03/04/23 16:06 03/05/23 03/05/23 03/05/23 06:59 14:59 22:59 Intake Total 621.2 / 1706.6 1054.375 / 1054.375 51 / 1105.375 Output Total 1000 / 3200 1700 / 1700 Balance -378.8 / -1493.4 -645.625 / -645.625 51 / -594.625 Weight last 48 hrs Weight 97.211 kg Weight 93.803 kg Weight 92.805 kg Physical Exam Narrative: General: No acute distress, AO x3, drowsy HEENT: PERRLA, pupils bilaterally equal and reactive Chest: Normal vesicular breath sounds, fine crackles bilaterally in lower zone, equal good air entry bilaterally CVS: S1-S2 regular, soft pansystolic murmur at apex, no tachycardia, no gallops, no rubs Abdomen: Soft, nontender, no organomegaly, bowel sounds present Neuro: No focal deficits, no facial deformity, AO x3, power 5/5 in all limbs Urinary Catheter Management: Mclean: Cath Placed During This Visit: yes Reason for Continuing Indwelling Catheter: Accurate Measurement of Urinary Output in Critically Ill Patients Urinary Catheter Date of Insertion: 03/04/23 Urinary Catheter Time of Insertion: 01:25 Data 03/05/23 16:41 03/05/23 03:59 Micro: Microbiology 03/04/23 01:25 Bacterial Antigens - Final Urine,Clean Catch 03/03/23 23:48 Blood Culture - Preliminary Blood NEGATIVE TO DATE 03/03/23 23:48 Blood Culture - Preliminary Blood NEGATIVE TO DATE A&P Assessment and plan (1) NSTEMI (non-ST elevated myocardial infarction): (2) Hypertensive emergency: (3) Diastolic congestive heart failure: (4) Acute anemia: (5) Chronic kidney disease: (6) Acute renal failure: (7) Type 2 diabetes mellitus: (8) Unstable angina: (9) Hypomagnesemia: (10) Hypokalemia: (11) Right lower lobe pulmonary infiltrate: (12) History of hepatitis C: (13) Back pain: (14) IV drug abuse: (15) Goals of care, counseling/discussion: (16) Chest pain: Plan 62-year-old gentleman past medical history of type 2 diabetes mellitus, noncompliant, post right toes amputation with history of unstable angina presen ts with ongoing chest pain from outside hospital with concerns for non-ST elevation KS found to have low hemoglobin. Chest pain/unstable angina: Concerns for non-ST elevation KS with elevated troponin though 6-hour cycle negative. Cannot rule out demand ischemia in setting of unstable angina because of hypertensive urgency, ongoing anemia. Appreciate cardiology consultation. For now continue with aspirin, statin, beta-roshan, Imdur. Continue with nitro drip for high blood pressures.. Currently on nitro drip. Appreciate cardiology recommendations. Plan for stress test once patient is hem odynamically stable most likely on Friday. Echocardiogram shows normal EF without regional wall motion abnormality, EF 65%, severe concentric LVH, grade 2 diastolic dysfunction, moderate LA size eleva tion. Continue with IV Lasix 40 mg daily. Hypertensive urgency: Goal blood pressure less than 140/90 mmHg. Blood pressure still elevated on high dose of nitro drip. Continue with amlodipine 10 mg daily, increase hydralazine to 100 mg 4 times daily, Coreg at 12.5 mg twice daily, change clonidine patch to 0.3 daily, change Imdur to 120 twice daily. If blood pressures remain elevated on a high-dose nitro drip will plan to add chlorthalidone as trying to avoid currently for ADAL versus CKD. Wean nitro drip accordingly. Anemia: Chronic versus possibility of GI bleed though less likely given no melena or hematemesis. Target hemoglobin over 8. Post 2 unit of blood transfusion. Protonix 40 mg twice daily, Carafate ACHS. Appreciate surgical recommendations. Plan for EGD and colonoscopy in a.m. Getting bowel prep today. Appreciate iron panel, vitamin B12 and folate levels. Congestive heart failure: Diastolic heart failure in setting of hypertensive urgency Strict input output charting. Continue on IV Lasix 40 mg daily. Fluid restriction up to 1500 cc. Mclean catheterization. Renal failure: Acute versus chronic. Most likely chronic in setting of uncontrolled hypertension, type 2 diabetes mellitus. Do not have baseline renal functions. CT abdomen pelvis ruled out obstructive nephropathy. Appreciate urinalysis, urine lites, urine creatinine. Monitor renal functions daily. Type 2 diabetes mellitus: Noncompliant. A1c 6.9. Insulin sliding scale at moderate dose protocol. Hypokalemia: Target potassium around 4. Check in a.m. Hypomagnesemia: Replete 2 mg of IV magnesium. Check in a.m. Right lower lobe infiltration: Cannot rule out pneumonia. Sputum culture. MRSA swab pending. Follow-up blood cultures. Continue with IV ceftriaxone and oral doxycycline. History of IV drug abuse/back pain: Cannot rule out discitis. Urine drug screen negative. Denies any active recent IV drug abuse. Blood cultures so far negative, CT spine negative for discitis or osteomyelitis. Goals of care discussion: Patient's daughter will be the DPOA. Full code. Clear liquid diet. Heparin 5000 every 12 hourly for DVT prophylaxis, SCDs. Protonix will suffice as PUD prophylaxis. Continue with ICU care. Attestations Medical Necessity Statement*: Requires further hospitalization for management of hypertensive urgency, non-ST elevation KS versus demand ischemia in setting of severe anemia requiring EGD and colonoscopy for further work-up, ADAL on CKD versus CKD Coding Level of Care Code Critical Care >/= 30 minutes Critical care time (in minutes): 70 The high probability of a clinically significant, sudden or life threatening deterioration, as referenced in this documentation, required my full and direct attention, intervention and personal management. The critical care time shown is in addition to time spent performing any reported separately billable procedures and includes the following: [x] Data and vital sign review and interpretation [x ] Patient assessment, examination and intervention [x] Medication orders and management [x] Patient/Family updates as able [x] Care Coordination and Documentation. Diagnoses NSTEMI (non-ST elevated myocardial infarction) I21.4 Hypertensive emergency I16.1 Diastolic congestive heart failure I50.30 Acute anemia D64.9 Chronic kidney disease N18.9 Acute renal failure N17.9 Type 2 diabetes mellitus E11.9 Unstable angina I20.0 Hypomagnesemia E83.42 Hypokalemia E87.6 Right lower lobe pulmonary infiltrate R91.8 History of hepatitis C Z86.19 Back pain M54.9 IV drug abuse F19.10 Goals of care, counseling/discussion Z71.89 Chest pain R07.9
[2023-03-05] MEDS: magnesium sulfate premix 2 GM/50 ML PIGGYBACK IV (17:52)
[2023-03-05] MEDS: isosorbide mononitrate ER 60 mg Tablet 120 MG PO (17:52)
[2023-03-05] MEDS: chlorthalidone 25 mg Tablet PO (17:52)
[2023-03-05 17:58] LABS: Glucose Point of Care 100 mg/dL (70-110)
[2023-03-05 18:49] LABS: Anion Gap 14.6 (5-19); Blood Urea Nitrogen 40 mg/dL (8-23); Calcium 7.3 mg/dL (8.5-10.5); Carbon Dioxide 23 mmol/L (22-29); Chloride 103 mmol/L (98-107); Glomerular Filtration Rate 23.9 mL/min (90-130); Glucose 92 mg/dL (65-115); Osmolality Calculated 293 mOsm/kg (285-295); Potassium 3.6 mmol/L (3.5-5.1); Sodium 137 mmol/L (136-145)
--- NOTE | 2023-03-05 19:57 | PC.NURSE ---
NItroglycerin was going at a rate of 105. Patient's IV started leaking and required removal and start of a new IV. Nitro administration was stopped for about 20-30 minutes due to no IV access. Dr cormier ordered to continue nitro but to restart at 50mcg. Night time PO blood pressure meds also given.
--- NOTE | 2023-03-05 19:59 | PC.NURSE ---
SHift SUmmary: Uneventful shift Patient rested in bed throughout the day, but was up frequently to use the bathroom. Doing bowel prep. 3 bowel movements during day shift, with the last bowel movement of day shift being very watery. Still requiring nitroglycerin, but lower amounts than last night. NPO at midnight upper and lower scope planned for tommorow. .
[2023-03-05 20:51] LABS: Glucose Point of Care 164 mg/dL (70-110)
[2023-03-05] MEDS: atorvastatin 40 mg Tablet PO (21:06)
[2023-03-06] VITALS (63 sets, daily range): BP systolic 103–208; BP diastolic 51–133; PULSE 47–97; RESP 7–34; O2SAT 84–99
[2023-03-06] MEDS: quetiapine 25 mg Tablet 50 MG PO ×2 (01:00→20:16)
[2023-03-06] MEDS: sucralfate 1 gm/10 mL Oral Liq UDC PO ×2 (01:01→10:56)
[2023-03-06] MEDS: cefTRIAXone 1,000 MG in sodium chloride 0.9% (plus) 50 ML 100 MG IV (01:01)
[2023-03-06] MEDS: pantoprazole 40 mg SDV IVP ×2 (01:01→10:56)
[2023-03-06] MEDS: nitroglycerin drip 50 MG/250 ML PREMIX 18 MG IV (03:38)
[2023-03-06] MEDS: FUROsemide 10 mg/mL SDV 4mL 40 MG IVP (05:23)
[2023-03-06 06:18] LABS: Basophils % 0.4 %; Eosinophils % 0.7 %; Hematocrit 28.3 % (37-53); Lymphocytes # 1.3 10^3/uL (0.8-4.8); Lymphocytes % 24.9 %; Mean Corpuscular HGB Conc 34.6 g/dL (30-55); Mean Corpuscular Hemoglobin 29.6 pg (27-33); Mean Corpuscular Volume 85.5 fl (82-101); Mean Platelet Volume 9.3 fL (7.4-10.4); Monocytes # 0.3 10^3/uL (0.2-0.9); Monocytes % 5.8 %; Neutrophils # 3.63 10^3/uL (1.8-7.7); Neutrophils % 67.8 %; Nucleated Red Blood Cells % 0 %; Platelet Count 232 10^3/cmm (157-399); Red Blood Count 3.31 10^6/uL (3.85-5.65); Red Cell Distribution Width 14.8 % (12.1-15.1); White Blood Count 5.35 10^3/uL (3.29-11.43)
--- NOTE | 2023-03-06 06:22 | W.PM.OPSUD ---
Surgery/Procedure H&P Update DATE OF PROCEDURE: March 06, 2023 DATE H&P PERFORMED: 08/02/19 H&P UPDATE INFORMATION: I have reviewed H&P completed within last 30 days, I have examined patient prior to procedure, No changes to prior documentation and H&P is in [facility] on date indicated PLANNED PROCEDURE: Operation Date: 03/06/23 07:00 Proposed Procedures p EGD(Not Applicable) - Kodi Golden MD s Colonoscopy(Not Applicable) - Kodi Golden MD
--- NOTE | 2023-03-06 06:40 | P.ANESASSM_ITS ---
Pre-Anesthetic Assessment Height/Weight: Height 1.98 m Weight 89.358 kg Temp Pulse Resp BP Pulse Ox O2 Del Method O2 Flow Rate 97.6 F 67 20 H 163/74 95 Nasal Cannula 2 03/05/23 16:00 03/06/23 08:45 03/06/23 08:45 03/06/23 08:45 03/06/23 08:45 03/06/23 07:57 03/06/23 07:57 Operation Date: 03/06/23 07:00 Proposed Procedures p EGD(Not Applicable) - Kodi Golden MD s Colonoscopy(Not Applicable) - Kodi Golden MD Familial anesthetic complications: none Last intake: > 8 hrs Exam alert, oriented x 3, clear to auscultation bilaterally and regular rate & rhythm Airway Dentition: other (poor dentition) CV/HEM Unstable Angina, Arrythmia, Congestive Heart Failure and Myocardial Infarction Discussed case with polysilicon preparation worker Dr. Webster. Troponins have stabilized and are not cotinuing to climb, the chest pain is not increasing in intensity and has been present for months, and he will require anticoagulation with the cath. Thus, will proceed with endoscopy to find possible source of bleeding. Chronic Renal Insufficiency Metabolic Diabetes Mellitus Anesthetic Plan ASA status: 4 Anesthesia: MAC Risk of > 500 ml blood loss (7ml/kg in children): No Medications/Allergies Home Medications Medication Instructions Recorded Confirmed Last Taken Type albuterol sulfate 90 mcg/actuation 2 puff inhalation Q6H PRN wheezing 03/04/23 03/04/23 Unknown History aerosol inhaler lisinopril 20 1 tab PO DAILY 03/04/23 03/04/23 Unknown History mg-hydrochlorothiazide 25 mg tablet Allergies Allergy/AdvReac Type Severity Reaction Status Date / Time No Known Allergies Allergy Verified 06/20/20 09:36 Current Medications Generic Name Dose Route Start Last Admin Trade Name Freq PRN Reason Stop Dose Admin Acetaminophen 650 mg 03/03/23 23:05 03/04/23 07:51 Acetaminophen 325 Mg Tablet PO 650 mg Q6H PRN Administration Mild/Mod Pain Or Temp >/= 101 Albuterol/Ipratropium 3 ml 03/04/23 16:00 03/06/23 07:56 Ipratropium-Albuterol 3 Ml Neb INHALATION 3 ml QID.RESPIRATORY LUDA Administration Amlodipine Besylate 10 mg 03/04/23 08:00 03/06/23 08:57 Amlodipine 10 Mg Tablet PO 10 mg Q24H LUDA Administration Aspirin 81 mg 03/04/23 09:00 03/06/23 08:57 Aspirin 81 Mg Ec Tablet PO 81 mg DAILY LUDA Administration Atorvastatin Calcium 40 mg 03/03/23 23:15 03/05/23 21:06 Atorvastatin 40 Mg Tablet PO 40 mg BEDTIME LUDA Administration Chlorthalidone 25 mg 03/05/23 17:25 03/06/23 08:57 Chlorthalidone 25 Mg Tablet PO 25 mg DAILY LUDA Administration Clonidine HCl 1 patch 03/05/23 10:15 03/05/23 11:17 Clonidine 0.3 Mg/24 Hr Patch TRANSDERMA 1 patch Q7D LUDA Administration Doxazosin Mesylate 4 mg 03/06/23 09:00 03/06/23 09:14 Doxazosin 4 Mg Tablet PO 4 mg DAILY LUDA Administration Hydralazine HCl 100 mg 03/05/23 13:00 03/06/23 08:57 Hydralazine 25 Mg Tablet PO 100 mg QID LUDA Administration Nitroglycerin/Dextrose 50 mg in 250 mls @ 0 mls/hr 03/03/23 23:15 03/06/23 03:38 Nitroglycerin Drip IV 60 mcg/min .Q0M LUDA 18 mls/hr Administration Protocol Per Protocol Insulin Human Lispro 0 unit 03/04/23 12:00 03/06/23 08:37 Insulin Lispro 100 Unit/1 Ml SUBCUT Not Given WM&BEDTIME LUDA Protocol Isosorbide Mononitrate 120 mg 03/05/23 18:00 03/06/23 08:56 Isosorbide Mononitrate Er 60 Mg Tablet PO 120 mg BID LUDA Administration Pantoprazole Sodium 40 mg 03/03/23 23:15 03/06/23 01:01 Pantoprazole 40 Mg Sdv IVP 40 mg Q12H LUDA Administration Quetiapine Fumarate 50 mg 03/03/23 23:15 03/06/23 01:00 Quetiapine 25 Mg Tablet PO 50 mg Q24H LUDA Administration Sodium Bicarbonate 650 mg 03/06/23 09:00 03/06/23 09:14 Sodium Bicarbonate 650 Mg Tablet PO 650 mg TID LUDA Administration Sucralfate 1 gm 03/03/23 23:15 03/06/23 01:01 Sucralfate 1 Gm/10 Ml Oral Liq Udc PO 1 gm Q12H LUDA Administration PFSH Anesthesia Medical History CHF (congestive heart failure) Depression Diabetes mellitus History of hepatitis C HTN (hypertension) Hypokalemia IV drug abuse Surgical History History of surgery on arm Tumor removal 2003 History of transmetatarsal amputation of right foot S/P foot surgery 1997 Family History Brother Cancer Diabetes Hypertension Mother Diabetes Hypertension Heart disease CAD (coronary artery disease) Father Heart disease Hypertension Diabetes CAD (coronary artery disease) Sister Hypertension Diabetes Grandmother Diabetes Grandfather Diabetes Social History Smoking and tobacco status: current every day smoker Alcohol intake: former Substance/Drug Use: current Substance/Drug use frequency: few times a month Substance/Drug use type: IV Drugs Adopted: No Lives independently: Yes Marital status: / Number of children: 2 Number of grandchildren: 2 Current gender identity: Male Data Anesthesia 03/06/23 06:09 03/06/23 06:09 Short CBC 03/04/23 03/05/23 03/05/23 Range/Units 17:58 00:02 03:59 WBC 5.80 (3.29-11.43) 10^3/uL Hgb 10.50 L D 8.80 L 8.20 L (11.27-16.99) g/dL Hct 30.4 L D 25.5 L 24.3 L (37-53) % MCV 87.7 (82-101) fl Plt Count 200 (157-399) 10^3/cmm Neut % (Auto) 63.3 % Neut # (Auto) 3.67 (1.8-7.7) 10^3/uL 03/05/23 03/05/23 03/06/23 Range/Units 08:39 16:41 06:09 WBC 5.35 (3.29-11.43) 10^3/uL Hgb 9.10 L 10.00 L 9.80 L (11.27-16.99) g/dL Hct 26.4 L 29.4 L 28.3 L (37-53) % MCV 85.5 (82-101) fl Plt Count 232 (157-399) 10^3/cmm Neut % (Auto) 67.8 % Neut # (Auto) 3.63 (1.8-7.7) 10^3/uL BMP 03/05/23 03/05/23 03/06/23 03:59 17:50 06:09 Sodium 138 137 138 Potassium 3.5 3.6 3.8 Chloride 105 103 103 Carbon Dioxide 23 23 20 L BUN 38 H 40 H 39 H Creatinine 2.8 H 2.7 H 2.6 H Glucose 118 H 92 93 Calcium 7.3 L 7.3 L 7.5 L Liver Function 03/05/23 03/06/23 Range/Units 03:59 06:09 Total Bilirubin 0.2 0.2 (0.15-1.2) mg/dL AST 10 12 (0-40) U/L ALT 6 7 (0-41) U/L Alkaline Phosphatase 61 62 (40-130) U/L Albumin 2.4 L 2.6 L (3.5-5.2) g/dL Blood Bank 03/04/23 03:57 Blood Type O Negative Rho(D) Type Negative Antibody Screen Negative Microbiology 03/05/23 15:55 Occult Blood (FIT) - Final Stool - Stool Aspirate 03/04/23 01:25 Bacterial Antigens - Final Urine,Clean Catch Cardiac Studies: Echocardiogram 03/03/23
[2023-03-06] MEDS: HYDROmorphone 1 mg/mL INJ 1 mL 0.5 MG IVP (06:43)
[2023-03-06 07:11] LABS: Alanine Aminotransferase 7 U/L (0-41); Albumin Level 2.6 g/dL (3.5-5.2); Alkaline Phosphatase 62 U/L (40-130); Anion Gap 18.8 (5-19); Aspartate Amino Transferase 12 U/L (0-40); Blood Urea Nitrogen 39 mg/dL (8-23); Calcium 7.5 mg/dL (8.5-10.5); Carbon Dioxide 20 mmol/L (22-29); Chloride 103 mmol/L (98-107); Globulin 2.4 g/dL (1.3-4.6); Glucose 93 mg/dL (65-115); Magnesium 2.2 mg/dL (1.7-2.3); Osmolality Calculated 295 mOsm/kg (285-295); Phosphorus 4.9 mg/dL (2.5-4.5); Potassium 3.8 mmol/L (3.5-5.1); Sodium 138 mmol/L (136-145); Total Bilirubin 0.2 mg/dL (0.15-1.2)
--- NOTE | 2023-03-06 07:44 | PM.MISC ---
Miscellaneous Note Purpose of Documentation: Update in patient care Note: EGD and colonoscopy were done today. ? EGD shows evidence of erosions on the prepyloric region, these may have been the source of the GI bleed. I recommend patient to continue on twice a day PPI and Carafate as tolerated. ? Colonoscopy was done, colon was examined up to the hepatic flexure, no evidence of bleeding or residual blood in the lumen, bowel prep was poor, there was 2 small polyps 1 in the sigmoid and one in the transverse colon, not biopsy at this time due to risk of bleeding as patient will require anticoagulation and at the moment the risks of undergoing therapeutic intervention is higher than the benefit due to patient acute cardiac condition. Patient will require repeat endoscopy within the years. That should be done after the acute episode is resolved. -No further intervention planned from the surgery standpoint ?All other care per ICU and primary team.
--- NOTE | 2023-03-06 07:55 | ANE.PACU2 ---
Inpatient post-anesthesia follow up: Airway intact: Yes Vital signs: Temperature 97.6 F Pulse Rate 65 Respiratory Rate 18 Blood Pressure 163/74 Pulse Oximetry 94 Oxygen Delivery Me thod Room Air Oxygen Flow Rate 2 Fraction of Inspir ed Oxygen Hydration adequate: Yes Nausea and vomiting: No Pain level: 1 Mental status: Baseline
[2023-03-06] MEDS: ipratropium-albuterol 3 mL Neb INHALATION (07:56)
[2023-03-06 08:11] LABS: Glucose Point of Care 110 mg/dL (70-110)
--- NOTE | 2023-03-06 08:48 | ECG_ITS ---
[facility] Test Date: 2023-03-07 Pat Name: Abhijit Osullivan Department: Room: ICU09 Gender: Male Direct Support Staff Member: : 1960 Requested By: Nilton Turpin Order Number: [id number] Wero MD: Erlinda Saini M.D. Interpretive Statements Name of study: Lexiscan sestamibi stress test Indication: NSTEMI Date of study: 03/07/2023 Ordering provider: Sharron Turpin PROCEDURE: At the baseline, the blood pressure was 184/95 mm Hg with a heart rate of 71 bpm. The electrocardiogram showed sinus rhythm with first degree AV block, possible old anteroseptal infarct. T wave abnormality, consider inferior and anterolateral ischemia. ??? The Lexiscan was infused over a period of 20 seconds. A total of 0.4 milligrams of Lexiscan was infused. The stress phase was continued for a total of 5 minutes. Heart rate at the end of the stress phase was 77 bpm with a blood pressure of 192/82 mm Hg. The EKG at the peak infusion revealed no changes. ??? Sestamibi was injected 20 seconds after the Lexiscan infusion. ??? Blood pressure at the end of the recovery phase was 183/83 mm Hg with a heart rate of 73 beats per minute. ??? CONCLUSION: 1. No significant EKG changes with the LexiScan infusion. 2. No LexiScan induced chest pain or cardiac arrhythmia. 3. Normal blood pressure and heart rate response. 4. Sestamibi/sestamibi perfusion scan pending; see separate report. Electronically Signed On 03-10-2023 20:52:39 CDT by Erlinda Saini M.D. [id number]
[2023-03-06] MEDS: isosorbide mononitrate ER 60 mg Tablet 120 MG PO ×2 (08:56→17:30)
[2023-03-06] MEDS: hyDRALAzine 25 mg Tablet 100 MG PO ×4 (08:57→20:17)
[2023-03-06] MEDS: chlorthalidone 25 mg Tablet PO (08:57)
[2023-03-06] MEDS: aspirin 81 mg EC Tablet PO (08:57)
[2023-03-06] MEDS: amlodipine 10 mg Tablet PO (08:57)
[2023-03-06] MEDS: carvedilol 12.5 mg Tablet PO (08:57)
--- NOTE | 2023-03-06 09:02 | PC.SOCIAL ---
Pg 2 IMM Explained to pt Pg 2 IMM. No questions voiced. Provided pt a copy. Initialed, dated, & timed a copy & placed in chart.
[2023-03-06] MEDS: doxazosin 4 mg Tablet PO (09:14)
[2023-03-06] MEDS: HYDROcodone-acetaminophen 5-325 mg Tablet 1 TAB PO (09:14)
[2023-03-06] MEDS: sodium bicarbonate 650 mg Tablet PO ×3 (09:14→20:18)
--- NOTE | 2023-03-06 09:47 | PM.PN ---
Subjective Subjective: Patient denies chest pain. Had EGD and colonoscopy today. no active bleeding. Vitals/I&O/Wt Last Vital Signs Temp 97.6 F 03/05/23 16:00 Pulse 67 03/06/23 08:45 Resp 20 H 03/06/23 08:45 BP 163/74 03/06/23 08:45 Pulse Ox 95 03/06/23 08:45 O2 Del Method Nasal Cannula 03/06/23 07:57 O2 Flow Rate 2 03/06/23 07:57 03/05/23 03/06/23 03/06/23 22:59 06:59 14:59 Intake Total 133.125 / 1241.000 166.875 / 1407.875 360 / 360 Output Total 1200 / 2900 Balance -1066.875 / -1659.000 166.875 / -1492.125 360 / 360 Weight last 48 hrs Weight 197 lb Weight 214 lb 5 oz Physical Exam Narrative: GENERAL: Patient is alert, awake and oriented x3. [] NECK: No jugular vein distension. [] HEENT: No cyanosis. No icterus. No pallor. [] HEART: Regular S1 and S2. Grade 2/6 systolic murmur LUNGS: Clear to auscultate bilaterally. [] CENTRAL NERVOUS SYSTEM: Grossly nonfocal. [] EXTREMITIES: Lower extremities with 1+ edema bilaterally. Urinary Catheter Management: Mclean: Cath Placed During This Visit: yes Reason for Continuing Indwelling Catheter: Accurate Measurement of Urinary Output in Critically Ill Patients Urinary Catheter Date of Insertion: 03/04/23 Urinary Catheter Time of Insertion: 01:25 Data 03/06/23 06:09 03/06/23 06:09 Micro: Microbiology 03/05/23 15:55 Occult Blood (FIT) - Final Stool - Stool Aspirate 03/04/23 01:25 Bacterial Antigens - Final Urine,Clean Catch A&P Assessment and plan (1) Diastolic congestive heart failure: (2) Chronic kidney disease: (3) Type 2 diabetes mellitus: (4) Chest pain: (5) Acute renal failure: (6) Elevated troponin: Plan Patient has complex history. Has been having chest discomfort but says has it for several months . Troponin levels are elevated however it is in the setting of renal dysfunction and hypertensive urgency/emergency. It could be related to demand ischemia with normal LV systolic function on echocardiogram. Hemoglobin over 8 today. Plan for stress test tomnorrow. If significant abnormalities seen, will plan on angiogram. At this time risk of CHERELLE is significant. No active GI bleeding identified. Continue Aspirin. Blood pressure control control has improved but still elevated. Thank you for involving us with care of this patient. we will continue to follow. Please call with questions. Attestations Medical Necessity Statement*: Care expected to cross 2 midnights. Coding Level of Care Code Acute Code for [facility] Diagnoses Diastolic congestive heart failure I50.30 Chronic kidney disease N18.9 Type 2 diabetes mellitus E11.9 Chest pain R07.9 Acute renal failure N17.9 Elevated troponin R79.89
[2023-03-06] MEDS: insulin lispro 100 unit/1 mL SUBCUT ×2 (13:04→17:31)
[2023-03-06 14:28] LABS: Methicillin-Resist S.aureu PCR NOT DETECTED (NOT DETECTED)
--- NOTE | 2023-03-06 15:01 | P.PN_ITS ---
Subjective Subjective: No acute events overnight. Today morning patient underwent EGD and colonoscopy. Results appreciated. Patient seen and ICU. States he has been having on and off chest pressure. Denies any nausea vomiting, headache. When seen he is on nitro drip of 50. Blood work appreciated for stable CBC, no leukocytosis, CMP showing no electrode abnormality, creatinine stable at around 2.6 with BUN of 39 Patient denies chest pain. Had EGD and colonoscopy today. no active bleeding. Vitals/I&O/Wt Last Vital Signs Temp 97.6 F 03/05/23 16:00 Pulse 60 03/06/23 12:00 Resp 18 03/06/23 12:00 BP 126/65 03/06/23 12:15 Pulse Ox 88 L 03/06/23 12:00 O2 Del Method Room Air 03/06/23 11:10 O2 Flow Rate 2 03/06/23 07:57 03/06/23 03/06/23 03/06/23 06:59 14:59 22:59 Intake Total 166.875 / 1407.875 852.9 / 852.9 Balance 166.875 / -1492.125 852.9 / 852.9 Weight last 48 hrs Weight 89.358 kg Weight 97.211 kg Physical Exam Narrative: General: No acute distress, AO x3, sleeping on entering the room but wakes up to verbal stimulus HEENT: PERRLA, pupils bilaterally equal and reactive Chest: Normal vesicular breath sounds, fine crackles bilaterally in lower zone, equal good air entry bilaterally CVS: S1-S2 regular, soft pansystolic murmur at apex, no tachycardia, no gallops, no rubs Abdomen: Soft, nontender, no organomegaly, bowel sounds present Neuro: No focal deficits, no facial deformity, AO x3, power 5/5 in all limbs Urinary Catheter Management: Mclean: Cath Placed During This Visit: yes Reason for Continuing Indwelling Catheter: Accurate Measurement of Urinary Output in Critically Ill Patients Urinary Catheter Date of Insertion: 03/04/23 Urinary Catheter Time of Insertion: 01:25 Data 03/06/23 06:09 03/06/23 06:09 Micro: Microbiology 03/05/23 15:55 Occult Blood (FIT) - Final Stool - Stool Aspirate 03/04/23 01:25 Bacterial Antigens - Final Urine,Clean Catch A&P Assessment and plan (1) NSTEMI (non-ST elevated myocardial infarction): (2) Hypertensive emergency: (3) Diastolic congestive heart failure: (4) Acute anemia: (5) Chronic kidney disease: (6) Acute renal failure: (7) Type 2 diabetes mellitus: (8) Unstable angina: (9) Hypomagnesemia: (10) Hypokalemia: (11) Right lower lobe pulmonary infiltrate: (12) History of hepatitis C: (13) Back pain: (14) IV drug abuse: (15) Goals of care, counseling/discussion: (16) Chest pain: Plan 62-year-old gentleman past medical history of type 2 diabetes mellitus, noncompliant, post right toes amputation with history of unstable angina presents with ongoing chest pain from outside hospital with concerns for non-ST elevation PA found to have low hemoglobin. Chest pain/unstable angina: Concerns for non-ST elevation PA with elevated troponin though 6-hour cycle negative. Cannot rule out demand ischemia in setting of unstable angina because of hypertensive urgency, ongoing anemia. Appreciate cardiology consultation. Stop nitro drip. For now continue with aspirin, statin, beta-roshan, Imdur. Appreciate cardiology recommendations. Plan for stress test once patient is hemodynamically stable most likely on Friday. Echocardiogram shows normal EF without regional wall motion abnormality, EF 65%, severe concentric LVH, grade 2 diastolic dysfunction, moderate LA size el evation. Plan for Lexiscan stress test in a.m. N.p.o. from midnight. Hypertensive urgency: Goal blood pressure less than 150/90 mmHg with mean around 65. Blood pressure still elevated. Nitro drip to be stopped later in the day today. Continue with amlodipine 10 mg daily, hydralazine to 100 mg 4 times daily, clonidine patch to 0.3 daily, Imdur to 120 twice daily, chlorthalidone 25 mg daily. Increase carvedilol to 18.75 mg as per cardiology. We will continue to monitor blood pressure and possible we will try to decrease the oral antihypertensives. NSVT: Monitor potassium and magnesium. Most likely in setting of possible ACS. Beta-roshan as above. Anemia: Most likely chronic from slow occasional GI use. EGD and colonoscopy reveals prepyloric erosions without any active bleed. Appreciate surgical recommendations. Continue with Protonix already milligrams twice daily, Carafate ACHS. Appreciate iron panel, vitamin B12 and folate levels. Congestive heart failure: Diastolic heart failure in setting of hypertensive urgency Euvolemic. Strict input output charting. Hold off on any IV fluids or Lasix for now. Fluid restriction up to 1500 cc. Mclean catheterization. Renal failure: Most likely chronic in setting of uncontrolled hypertension, type 2 diabetes mellitus. Do not have baseline renal functions. Renal function so far stable between 2.4- 2.6. CT abdomen pelvis ruled out obstructive nephropathy. Appreciate urinalysis, urine lites, urine creatinine. Monitor renal functions daily. Type 2 diabetes mellitus: Noncompliant. A1c 6.9. Insulin sliding scale at moderate dose protocol. Hypokalemia: Target potassium around 4. Check in a.m. Hypomagnesemia: Replete 2 mg of IV magnesium. Check in a.m. Right lower lobe infiltration: Patient has remained on room air. Without any active cough. Low suspicion of pneumonia. Stop IV and oral antibiotics and monitor. Keep oxygen saturation over 88%. History of IV drug abuse/back pain: Cannot rule out discitis. Urine drug screen negative. Denies any active recent IV drug abuse. Blood cultures so far negative, CT spine negative for discitis or osteomyelitis. Goals of care discussion: Patient's daughter will be the DPOA. Full code. Mechanical soft diet, n.p.o. after midnight. Heparin 5000 every 12 hourly for DVT prophylaxis, SCDs. Protonix will suffice as PUD prophylaxis. Continue with ICU care. Attestations Medical Necessity Statement*: Questionable hospitalization for management of hypertensive urgency requiring m ultiple oral antihypertensives were adjusted, unstable angina with concerns for NSTEMI Diagnoses NSTEMI (non-ST elevated myocardial infarction) I21.4 Hypertensive emergency I16.1 Diastolic congestive heart failure I50.30 Acute anemia D64.9 Chronic kidney disease N18.9 Acute renal failure N17.9 Type 2 diabetes mellitus E11.9 Unstable angina I20.0 Hypomagnesemia E83.42 Hypokalemia E87.6 Right lower lobe pulmonary infiltrate R91.8 History of hepatitis C Z86.19 Back pain M54.9 IV drug abuse F19.10 Goals of care, counseling/discussion Z71.89 Chest pain R07.9
[2023-03-06] MEDS: heparin 5,000 unit/mL INJ 1 mL 5000 UNIT SUBCUT (16:06)
[2023-03-06] MEDS: carvedilol 12.5 mg Tablet 18.75 MG PO (17:30)
[2023-03-06 19:31] LABS: Glucose Point of Care 248 mg/dL (70-110)
[2023-03-06 19:31] LABS: Glucose Point of Care 202 mg/dL (70-110)
[2023-03-06 19:45] LABS: Glucose Point of Care 138 mg/dL (70-110)
[2023-03-06 19:45] LABS: HEP C RNA Viral Load Quant <1.18 NOT DETECTED Log IU/mL (NOT DETECTED); HEP C RNA Viral Load Quant <15 NOT DETECTED IU/mL (NOT DETECTED)
[2023-03-06] MEDS: acetaminophen 325 mg Tablet 650 MG PO (20:19)
[2023-03-06] MEDS: atorvastatin 40 mg Tablet PO (20:19)
--- NOTE | 2023-03-06 20:45 | PC.NURSE ---
Patient requested that his doctor be notified that he needs his Seroquel now and his pain medicine dose increased. These issues were discussed with Dr. Nicole who gave orders to give Seroquel early and change PO Dilaudid to 1mg Q6H PRN pain.
[2023-03-07] VITALS (45 sets, daily range): BP systolic 115–214; BP diastolic 44–136; PULSE 63–82; RESP 9–28; O2SAT 90–96
[2023-03-07] MEDS: pantoprazole 40 mg SDV IVP ×3 (00:43→22:39)
[2023-03-07] MEDS: sucralfate 1 gm/10 mL Oral Liq UDC PO ×3 (00:44→22:39)
[2023-03-07] MEDS: heparin 5,000 unit/mL INJ 1 mL 5000 UNIT SUBCUT ×2 (03:34→15:06)
[2023-03-07 04:24] LABS: Basophils % 0.6 %; Eosinophils # 0.1 10^3/uL (0.0-0.8); Eosinophils % 1.5 %; Hematocrit 26.7 % (37-53); Lymphocytes # 1.7 10^3/uL (0.8-4.8); Lymphocytes % 24.5 %; Mean Corpuscular HGB Conc 32.6 g/dL (30-55); Mean Corpuscular Hemoglobin 29.2 pg (27-33); Mean Corpuscular Volume 89.6 fl (82-101); Mean Platelet Volume 9.4 fL (7.4-10.4); Monocytes # 0.4 10^3/uL (0.2-0.9); Nucleated Red Blood Cells % 0 %; Platelet Count 244 10^3/cmm (157-399); Red Blood Count 2.98 10^6/uL (3.85-5.65); Red Cell Distribution Width 15.1 % (12.1-15.1); White Blood Count 6.86 10^3/uL (3.29-11.43)
[2023-03-07 04:47] LABS: Alanine Aminotransferase 8 U/L (0-41); Albumin Level 2.5 g/dL (3.5-5.2); Alkaline Phosphatase 66 U/L (40-130); Anion Gap 14.8 (5-19); Aspartate Amino Transferase 11 U/L (0-40); Blood Urea Nitrogen 45 mg/dL (8-23); Calcium 7.2 mg/dL (8.5-10.5); Carbon Dioxide 23 mmol/L (22-29); Chloride 104 mmol/L (98-107); Globulin 2.7 g/dL (1.3-4.6); Glomerular Filtration Rate 17.7 mL/min (90-130); Glucose 220 mg/dL (65-115); Osmolality Calculated 304 mOsm/kg (285-295); Potassium 3.8 mmol/L (3.5-5.1); Sodium 138 mmol/L (136-145); Total Bilirubin 0.2 mg/dL (0.15-1.2); Total Protein 5.2 g/dL (6.6-8.7)
[2023-03-07 04:48] LABS: Magnesium 2.1 mg/dL (1.7-2.3); Phosphorus 5.6 mg/dL (2.5-4.5)
--- NOTE | 2023-03-07 08:00 | NMCV_ITS ---
NM placido perf SPECT r/s* [id number] Abhijit Osullivan Age: 62 Gender: M : 1960 Exam Date: 03/07/2023 07:26 Ordering Phys: Nilton Turpin MD Technologist: MAXIMO Herron Exam Location: [facility] Indications: CHEST PAIN STRESS TEST [facility] IMAGE PROTOCOL Rest/Stress 1 Lexiscan Day Radiopharmaceutical Dose (mCi) Administration Site Administered by Rest: Tc-99m 10.8 IV Samuel Cortes, TELEPHONE STATION REPAIRER Sestamibi Stress:Tc-99m 32.8 IV Samuel Cortes, TELEPHONE STATION REPAIRER Sestamibi Rest: 07-Mar-2023 60 Discovery 630 Stress: 07-Mar-2023 30 Discovery 630 0.4mg Lexiscan. Supine position only as patient was unable to lay prone. SPECT RESULTS Technical Quality: Excellent Raw Data Analysis: Normal Image Corrections: No attenuation or motion correction applied Summed Stress Score: 5 Summed Rest Score: 1 Summed Difference Score: 5 PERFUSION FINDINGS Small sized perfusion abnormality of mild severity of mid to apical inferior wall on stress images. FUNCTIONAL RESULTS (calculated via Gated SPECT) Stress Image LV EF (%): 49 Stress EDV (mL):204 TID: 1.18 Stress ESV (mL):105 FUNCTIONAL FINDINGS: The left ventricle is normal in size. Transient Ischemia Dilatation of 1.18. The left ventricular ejection fraction is mildly reduced with a value of 49%. Mild global hypokinesis Increased end-diastolic and end-systolic volumes. IMPRESSIONS 1. Small sized perfusion abnormality of mild severity of mid to apical inferior garcia. This may represent small area of ischemia in RCA territory. 2. The left ventricular ejection fraction is mildly reduced with a value of 49%. Mild global hypokinesis. 3. EKG portion of the study will be reported separately. 4. Scan indicates low risk for cardiac events. Erlinda Saini MD (Electronically Signed) Final Date: 07 March 2023 12:16 S
[2023-03-07] MEDS: regadenoson 0.4 Mg/5 ml Syringe IVP (08:22)
[2023-03-07] MEDS: amlodipine 10 mg Tablet PO (09:18)
[2023-03-07] MEDS: insulin lispro 100 unit/1 mL SUBCUT ×3 (09:18→17:13)
[2023-03-07] MEDS: hyDRALAzine 25 mg Tablet 100 MG PO ×4 (09:19→21:27)
[2023-03-07] MEDS: aspirin 81 mg EC Tablet PO (09:19)
[2023-03-07] MEDS: sodium bicarbonate 650 mg Tablet PO ×3 (09:19→21:27)
[2023-03-07] MEDS: doxazosin 4 mg Tablet PO (09:20)
[2023-03-07] MEDS: carvedilol 12.5 mg Tablet 18.75 MG PO ×2 (09:20→17:12)
[2023-03-07] MEDS: isosorbide mononitrate ER 60 mg Tablet 120 MG PO ×2 (09:20→17:12)
[2023-03-07] MEDS: phosphorus 250 mg Tablet PO ×2 (09:20→17:11)
[2023-03-07] MEDS: sodium chloride 0.9% 1,000 ML 75 ML IV (09:21)
[2023-03-07 11:35] LABS: Glucose Point of Care 145 mg/dL (70-110)
[2023-03-07 11:35] LABS: Glucose Point of Care 201 mg/dL (70-110)
--- NOTE | 2023-03-07 12:17 | P.PN_ITS ---
Subjective Subjective: No acute events overnight. Today morning seen after stress test. Patient lying comfortably in bed. Complaining of back pain. Asking for pain medications. Denies any chest pressures currently. Has remained hemodynamically stable and afebrile. Early in the morning without his antihypertensives blood pressures were trending up again in high 180s to 190s. After medications blood pressures has trended down to 130s. Blood work shows stable CBC, CMP showing elevation in creatinine to 3.5 with BUN of 45, calcium of 7.2 with hypophosphatemia of 5.6, stable magnesium Vitals/I&O/Wt Last Vital Signs Temp 97.6 F 03/05/23 16:00 Pulse 63 03/07/23 12:00 Resp 22 H 03/07/23 12:00 BP 126/56 03/07/23 12:00 Pulse Ox 92 03/07/23 12:00 O2 Del Method Room Air 03/07/23 12:00 O2 Flow Rate 2 03/06/23 07:57 03/06/23 03/07/23 03/07/23 22:59 06:59 14:59 Intake Total 490 / 1342.9 960 / 960 Output Total 800 / 800 700 / 1500 Balance -310 / 542.9 -700 / -157.1 960 / 960 Weight last 48 hrs Weight 96.162 kg Weight 89.358 kg Physical Exam Narrative: General: No acute distress, AO x3, sleeping on entering the room but wakes up to verbal stimulus HEENT: PERRLA, pupils bilaterally equal and reactive Chest: Normal vesicular breath sounds, fine crackles bilaterally in lower zone, equal good air entry bilaterally CVS: S1-S2 regular, soft pansystolic murmur at apex, no tachycardia, no gallops, no rubs Abdomen: Soft, nontender, no organomegaly, bowel sounds present Neuro: No focal deficits, no facial deformity, AO x3, power 5/5 in all limbs Urinary Catheter Management: Mclean: Cath Placed During This Visit: yes Reason for Continuing Indwelling Catheter: Accurate Measurement of Urinary Output in Critically Ill Patients Urinary Catheter Date of Insertion: 03/04/23 Urinary Catheter Time of Insertion: 01:25 Data 03/07/23 04:13 03/07/23 04:13 A&P Assessment and plan (1) NSTEMI (non-ST elevated myocardial infarction): (2) Hypertensive emergency: (3) Diastolic congestive heart failure: (4) Acute anemia: (5) Chronic kidney disease: (6) Acute renal failure: (7) Type 2 diabetes mellitus: (8) Unstable angina: (9) Hypomagnesemia: (10) Hypokalemia: (11) Right lower lobe pulmonary infiltrate: (12) History of hepatitis C: (13) Back pain: (14) IV drug abuse: (15) Goals of care, counseling/discussion: (16) Chest pain: Plan 62-year-old gentleman past medical history of type 2 diabetes mellitus, noncompliant, post right toes amputation with history of unstable angina presents with ongoing chest pain from outside hospital with concerns for non-ST elevation NH found to have low hemoglobin. Chest pain/unstable angina: Concerns for non-ST elevation NH with elevated troponin though 6-hour cycle negative. Cannot rule out demand ischemia in setting of unstable angina because of hypertensive urgency, ongoing anemia. Appreciate cardiology consultation. Stop nitro drip. For now continue with aspirin, statin, beta-roshan, Imdur. Appreciate cardiology recommendations. Plan for stress test once patient is hemodynamically stable most likely on Friday. Echocardiogram shows normal EF without regional wall motion abnormality, EF 65%, severe concentric LVH, grade 2 diastolic dysfunction, moderate LA size e levation. Plan for Lexiscan stress test in a.m. N.p.o. from midnight. Hypertensive urgency: Goal blood pressure less than 150/90 mmHg with mean around 65. Blood pressure still elevated. Nitro drip to be stopped later in the day today. Continue with amlodipine 10 mg daily, hydralazine to 100 mg 4 times daily, clonidine patch to 0.3 daily, Imdur to 120 twice daily, chlorthalidone 25 mg daily. Increase carvedilol to 18.75 mg as per cardiology. We will continue to monitor blood pressure and possible we will try to decrease the oral antihypertensives. NSVT: Monitor potassium and magnesium. Most likely in setting of possible ACS. Beta-roshan as above. Anemia: Most likely chronic from slow occasional GI use. EGD and colonoscopy reveals prepyloric erosions without any active bleed. Appreciate surgical recommendations. Continue with Protonix already milligrams twice daily, Carafate ACHS. Appreciate iron panel, vitamin B12 and folate levels. Congestive heart failure: Diastolic heart failure in setting of hypertensive urgency Euvolemic. Strict input output charting. Hold off on any IV fluids or Lasix for now. Fluid restriction up to 1500 cc. Mclean catheterization. Renal failure: Most likely chronic in setting of uncontrolled hypertension, type 2 diabetes mellitus. Do not have baseline renal functions. Renal function so far stable between 2.4- 2.6. CT abdomen pelvis ruled out obstructive nephropathy. Appreciate urinalysis, urine lites, urine creatinine. Monitor renal functions daily. Type 2 diabetes mellitus: Noncompliant. A1c 6.9. Insulin sliding scale at moderate dose protocol. Hypokalemia: Target potassium around 4. Check in a.m. Hypomagnesemia: Replete 2 mg of IV magnesium. Check in a.m. Right lower lobe infiltration: Patient has remained on room air. Without any active cough. Low suspicion of pneumonia. Stop IV and oral antibiotics and monitor. Keep oxygen saturation over 88%. History of IV drug abuse/back pain: Cannot rule out discitis. Urine drug screen negative. Denies any active recent IV drug abuse. Blood cultures so far negative, CT spine negative for discitis or osteomyelitis. Plan for the day: Follow-up stress test results. Continue with aspirin, statin, beta-roshan, Imdur. Start back on cardiac carb consistent diet. Monitor blood pressures. Goal blood pressure less than 140/90 mmHg. Continue current multiple antihypertensive including amlodipine 10 mg daily, Coreg 18.75 mg twice daily, clonidine 0.3 patch, Cardura 4 mg p.o. daily, hydralazine 100 mg 4 times daily, Imdur 120 twice daily. If needed will uptitrate Cardura. Continue with Protonix twice daily and Carafate ACHS. Slight worsening in renal functions today. ADAL on CKD. Normal saline at 75 cc/h. Hold off on diuretics. Hold off on chlorthalidone. Continue with sodium bicarbonate 650 3 times daily. At Neutra-Phos for hypophosphatemia. Repeat BMP and magnesium level in AM. Physical therapy. Out of bed to chair. Transfer to CSU. Goals of care discussion: Patient's daughter will be the DPOA. Full code. Mechanical soft diet, n.p.o. after midnight. Heparin 5000 every 12 hourly for DVT prophylaxis, SCDs. Protonix will suffice as PUD prophylaxis. Continue with ICU care. Attestations Medical Necessity Statement*: Requires further hospitalization for management of hypertensive urgency, unstable angina with demand ischemia, acute on chronic anemia in setting of gastric erosion while antihypertensives are further adjusted, stress test is done for ACS work-up, ADAL on CKD Diagnoses NSTEMI (non-ST elevated myocardial infarction) I21.4 Hypertensive emergency I16.1 Diastolic congestive heart failure I50.30 Acute anemia D64.9 Chronic kidney disease N18.9 Acute renal failure N17.9 Type 2 diabetes mellitus E11.9 Unstable angina I20.0 Hypomagnesemia E83.42 Hypokalemia E87.6 Right lower lobe pulmonary infiltrate R91.8 History of hepatitis C Z86.19 Back pain M54.9 IV drug abuse F19.10 Goals of care, counseling/discussion Z71.89 Chest pain R07.9
--- NOTE | 2023-03-07 13:02 | PC.SOCIAL ---
IMM Update pg 2 of IMM updated and reviewed w/ patient. Copy provided and Copy in chart dated and initialed.
--- NOTE | 2023-03-07 14:25 | P.PN_ITS ---
Subjective Subjective: Patient underwent stress test today. c/o generalized body and chest pain. No events on telemetry Medications: Reviewed: Yes Vitals/I&O/Wt Last Vital Signs Temp 97.6 F 03/05/23 16:00 Pulse 63 03/07/23 12:00 Resp 22 H 03/07/23 12:00 BP 126/56 03/07/23 12:00 Pulse Ox 92 03/07/23 12:00 O2 Del Method Room Air 03/07/23 12:00 O2 Flow Rate 2 03/06/23 07:57 03/06/23 03/07/23 03/07/23 22:59 06:59 14:59 Intake Total 490 / 1342.9 960 / 960 Output Total 800 / 800 700 / 1500 Balance -310 / 542.9 -700 / -157.1 960 / 960 Weight last 48 hrs Weight 212 lb Weight 197 lb Physical Exam Const: COMMON NORMALS: no acute distress, patient oriented x3 and alert GEN ERAL APPEARANCE: cooperative, comfortable, well kempt and well hydrated HENMT: COMMON NORMALS: hearing grossly normal bilaterally and external ears normal FACE & SINUS: normal facial exam EXTERNAL EAR: Yes external ears normal Eye: COMMON NORMALS: EOMs intact bilaterally and no scleral icterus GENERAL EYE: appearance normal, both eyes and all related structures ALIGNMENT: Yes alignment normal Neck/C-Spine: COMMON NORMALS: supple and no JVD GENERAL: Yes normal visual inspection CAROTIDS: Yes normal carotid upstroke Chest: COMMONS NORMALS: normal inspection of the chest and normal palpation of entire chest wall CHEST: Yes Symmetrical chest wall rise and No tenderness Resp: COMMON NORMALS: clear to auscultation bilaterally AUSCULTATION: clear to auscultation bilaterally, no crackles, no rales, no rhonchi and no wheezes Cardio: COMMON NORMALS: no JVD, regular rate, regular rhythm, S1 normal heart sound present, S2 normal heart sound present and Peripheral pulses 2+ throughout PALPATION: normal PMI RATE: regular rate RHYTHM: regular rhythm H EART SOUNDS: S1 normal heart sound present, S2 normal heart sound present and no murmurs BRUITS: no carotid bruits PERIPHERAL PULSES: Peripheral pulses 2+ throughout, radial pulses present, posterior tibial pulses present and dorsalis pedis present GI: COMMON NORMALS: Soft to palpation AUSCULTATION: Yes normoactive bowel sounds PALPATION: Yes Soft to palpation, No Tenderness to palpation present (GI) and No Guarding due to palpation present (GI) Extremity: GENERAL: No cyanosis, Yes edema and No pallor Neuro: COMMON NORMALS: patient oriented x3, CN's II-XII intact bilaterally and no focal motor deficits SENSORIUM/ORIENTATION: Yes alert Psych: COMMON NORMALS: Normal thought process present and speech normal APPEARANCE: Yes well kempt SPEECH: Yes normal speech MOOD & AFFECT: Yes euthymic mood THOUGHT PROCESS: Normal thought process present THOUGHT CONTENT: Yes Normal thought content present Urinary Catheter Management: Mclean: Cath Placed During This Visit: yes Reason for Continuing Indwelling Catheter: Accurate Measurement of Urinary Output in Critically Ill Patients Urinary Catheter Date of Insertion: 03/04/23 Urinary Catheter Time of Insertion: 01:25 Data 03/07/23 04:13 03/07/23 04:13 A&P Assessment and plan (1) Chest pain: (2) Diastolic congestive heart failure: (3) Chronic kidney disease: (4) Acute renal failure: (5) Type 2 diabetes mellitus: (6) Elevated troponin: Plan NSTEMI appears to be type 2 in setting of demand ischemia c/o chest discomfort for several months . Troponin levels are elevated however no delta (troponin T 117-->120-->117) Normal LV systolic function on echocardiogram. Creatinine 2.8--> 3.5 today Hemoglobin 6.2-->8 today, no active bleeding. -small area of ischemia on inferior wall on stress test No active GI bleeding identified. -At this time with renal dysfunction, chronic nature of pain, anemia and h/o non compliance, will continue with medical management. -Continue Aspirin. Blood pressure control control has improved but still elevated. Thank you for involving us with care of this patient. we will continue to follow. Please call with questions. Attestations Medical Necessity Statement*: as per primary team Coding Level of Care Code 98946 Diagnoses Chest pain R07.9 Diastolic congestive heart failure I50.30 Chronic kidney disease N18.9 Acute renal failure N17.9 Type 2 diabetes mellitus E11.9 Elevated troponin R79.89
[2023-03-07 20:05] LABS: Glucose Point of Care 305 mg/dL (70-110)
[2023-03-07] MEDS: ipratropium-albuterol 3 mL Neb INHALATION (20:06)
[2023-03-07 21:26] LABS: Glucose Point of Care 140 mg/dL (70-110)
[2023-03-07] MEDS: atorvastatin 40 mg Tablet PO (21:27)
--- NOTE | 2023-03-07 21:50 | PC.NURSE ---
Upon nurse rounding the patient stated he was in extreme pain. When asked to rate in on pain scale 0-10, patient stated it was a 9. It was a 6 to 7 earlier and now its a 9. I've been hospitalized before and I've never been done this way. They don't just let me sit in pain. When asked where the pain was he stated it was in his legs and back. I've broke my back before, that how I got disabled. Patient is threatening to go home AMA due to lack of pain treatment. He stated he has been asking to speak to the doctor all day and hasn't seen one. He also requested a nicotine patch as well. Dr refused his patch due to a current diagnosis. Nurse told the patient his next dose of pain medicine was due at 2300 and I could probably give it at 2230. He stated if you are just going to give me a sprinkling of the same medicine, you can just keep it. was given a call regarding this conversation. New orders were given.
[2023-03-07] MEDS: HYDROmorphone 1 mg/mL INJ 1 mL IVP (22:40)
[2023-03-07] MEDS: quetiapine 25 mg Tablet 50 MG PO (22:40)
[2023-03-08] VITALS (28 sets, daily range): BP systolic 133–196; BP diastolic 64–106; PULSE 57–75; RESP 11–27; TEMP 36.7–37.1; O2SAT 86–95; BMI 10.8
[2023-03-08] MEDS: heparin 5,000 unit/mL INJ 1 mL 5000 UNIT SUBCUT (03:25)
[2023-03-08 03:58] LABS: Basophils # 0.1 10^3/uL (0.0-0.1); Basophils % 0.8 %; Eosinophils # 0.2 10^3/uL (0.0-0.8); Eosinophils % 2.6 %; Hematocrit 25.3 % (37-53); Lymphocytes # 1.9 10^3/uL (0.8-4.8); Lymphocytes % 31.2 %; Mean Corpuscular Volume 90.7 fl (82-101); Mean Platelet Volume 9.5 fL (7.4-10.4); Monocytes # 0.4 10^3/uL (0.2-0.9); Monocytes % 6.4 %; Neutrophils # 3.54 10^3/uL (1.8-7.7); Neutrophils % 58.2 %; Nucleated Red Blood Cells % 0 %; Platelet Count 220 10^3/cmm (157-399); Red Blood Count 2.79 10^6/uL (3.85-5.65); Red Cell Distribution Width 14.8 % (12.1-15.1); White Blood Count 6.09 10^3/uL (3.29-11.43)
[2023-03-08 04:33] LABS: Alanine Aminotransferase 8 U/L (0-41); Albumin Level 2.3 g/dL (3.5-5.2); Alkaline Phosphatase 58 U/L (40-130); Anion Gap 13.8 (5-19); Aspartate Amino Transferase 12 U/L (0-40); Blood Urea Nitrogen 48 mg/dL (8-23); Calcium 6.9 mg/dL (8.5-10.5); Carbon Dioxide 23 mmol/L (22-29); Chloride 105 mmol/L (98-107); Globulin 2.8 g/dL (1.3-4.6); Glomerular Filtration Rate 17.7 mL/min (90-130); Glucose 139 mg/dL (65-115); Osmolality Calculated 301 mOsm/kg (285-295); Potassium 3.8 mmol/L (3.5-5.1); Sodium 138 mmol/L (136-145); Total Bilirubin 0.2 mg/dL (0.15-1.2); Total Protein 5.1 g/dL (6.6-8.7)
[2023-03-08 04:34] LABS: Phosphorus 4.9 mg/dL (2.5-4.5)
[2023-03-08] MEDS: HYDROmorphone 1 mg/mL INJ 1 mL IVP ×2 (04:51→11:12)
[2023-03-08 07:35] LABS: Glucose Point of Care 132 mg/dL (70-110)
[2023-03-08] MEDS: sodium bicarbonate 650 mg Tablet PO (08:56)
[2023-03-08] MEDS: amlodipine 10 mg Tablet PO (08:56)
[2023-03-08] MEDS: doxazosin 4 mg Tablet PO (08:56)
[2023-03-08] MEDS: phosphorus 250 mg Tablet PO (08:56)
[2023-03-08] MEDS: aspirin 81 mg EC Tablet PO (08:56)
[2023-03-08] MEDS: carvedilol 12.5 mg Tablet 18.75 MG PO (08:56)
[2023-03-08] MEDS: hyDRALAzine 25 mg Tablet 100 MG PO (08:56)
[2023-03-08] MEDS: isosorbide mononitrate ER 60 mg Tablet 120 MG PO (08:56)
--- NOTE | 2023-03-08 09:38 | PM.PN ---
Subjective Subjective: Patient is doing okay without any chest pain or shortness of breath. Blood pressure is in the 160s to 170s systolic. Vitals/I&O/Wt Last Vital Signs Temp 98.7 F 03/08/23 04:00 Pulse 67 03/08/23 09:29 Resp 23 H 03/08/23 09:29 BP 172/88 03/08/23 09:29 Pulse Ox 90 03/08/23 09:29 O2 Del Method Room Air 03/08/23 09:29 O2 Flow Rate 2 03/06/23 07:57 03/07/23 03/08/23 03/08/23 22:59 06:59 14:59 Intake Total 240 / 1200 667 / 1867 1360 / 1360 Output Total 925 / 925 775 / 1700 400 / 400 Balance -685 / 275 -108 / 167 960 / 960 Weight last 48 hrs Weight 212 lb Weight 212 lb Physical Exam Const: COMMON NORMALS: no acute distress and patient oriented x3 GENERAL APPEARANCE: cooperative and comfortable Neck/C-Spine: COMMON NORMALS: no JVD OTHER: Supple no JVD no carotid bruits Resp: COMMON NORMALS: normal respiratory effort, No retractions, No use of accessory muscles, clear to auscultation bilaterally and percussion normal AUSCULTATION: clear to auscultation bilaterally PERCUSSION: percussion normal Cardio: COMMON NORMALS: no JVD, regular rate, regular rhythm, S1 normal heart sound present, S2 normal heart sound present, No gallops present (Cardio), No clicks present (Cardio), No murmurs present (Cardio) and Peripheral pulses 2+ throughout RATE: regular rate RHYTHM: regular rhythm HEART SOUNDS: S1 normal heart sound present and S2 normal heart sound present PERIPHERAL PULSES: Peripheral pulses 2+ throughout OTHER: No edema. Neuro: COMMON NORMALS: patient oriented x3 Urinary Catheter Management: Mclean: Cath Placed During This Visit: yes Reason for Continuing Indwelling Catheter: Other Urinary Catheter Date of Insertion: 03/04/23 Urinary Catheter Time of Insertion: 01:25 Data 03/08/23 03:30 03/08/23 03:30 A&P Assessment and plan (1) Elevated troponin: Patient is asymptomatic at this time. Patient had a recent stress test which showed mild ischemia. Patient is to continue medical therapy. At this time would be treated medically in light of his acute on chronic renal insufficiency and very high risk of contrast nephropathy. We will increase his Coreg to 25 twice a day hold for heart rate less than 50 blood pressure less than 100. (2) Diastolic congestive heart failure: Seems to be well compensated at this time. Continues on low-salt diet and fluid restriction. (3) Chronic kidney disease: His creatinine seems to be slightly better today down to 3.5 from 3.7. Managed by primary care team. (4) HTN (hypertension): Inadequately controlled systolic blood pressure running between 160 and 170. We will increase his Coreg to 25 mg twice a day. Will use clonidine as needed for blood pressure more than 170. Attestations Medical Necessity Statement*: As per primary team Coding Level of Care Code 13920 Diagnoses Elevated troponin R79.89 Diastolic congestive heart failure I50.30 Chronic kidney disease N18.9 HTN (hypertension) I10
[2023-03-08 11:05] LABS: Glucose Point of Care 265 mg/dL (70-110)
[2023-03-08] MEDS: sucralfate 1 gm/10 mL Oral Liq UDC PO (11:12)
[2023-03-08] MEDS: pantoprazole 40 mg SDV IVP (11:12)
--- NOTE | 2023-03-08 12:18 | PM.DCS ---
Discharge Providers Date of Admission: 03/03/23 22:26 Date of Discharge: March 08, 2023 Attending Provider at Admission: Christin Bennett MD Attending Provider at Discharge: Nilton Turpin MD Primary Care Provider: Twila Lazo-Sapna Diagnoses at Discharge Discharge Diagnosis (1) Elevated troponin: Status: Acute (2) Diastolic congestive heart failure: Status: Acute (3) Chronic kidney disease: Status: Acute (4) HTN (hypertension): Status: Acute (5) IV drug abuse: Status: Acute (6) Right lower lobe pulmonary infiltrate: Status: Acute (7) Unstable angina: Status: Acute (8) Hypokalemia: Status: Acute (9) Hypomagnesemia: Status: Acute (10) Hypertensive emergency: Status: Acute (11) Acute renal failure: Status: Acute (12) Drug-seeking behavior: Status: Acute (13) Non-compliance: Status: Acute Reason for Visit Reason for Visit: NSTEMI Brief History: History as per HPI: Abhijit Osullivan is a 62 year old male with a past med history of uncontrolled hypertension, type 2 diabetes mellitus, diabetic neuropathy, history of right TMA, who presents [facility] for chest pain shortness of breath.? Patient tells me for the last few months, he has been having chest pain shortness of breath, he has not followed up with his primary care provider in some time, he has not been taking his medications, he tells me that the chest pain is substernal, nonradiating a pressure-like pain, like something sitting on his chest, currently he is on the nitro drip, pain is 8 out of 10, he tells me that it really has not changed since being transfer from [facility], the only thing that really helped with the pain was the morphine that he received, denies any fevers, but does report chills, does report shortness of breath and bilateral TRAM edema for the last few weeks, which has recently worsened, shortness of breath with exertion, no cough.? At [facility], he was diagnosed with an NSTEMI, elevated troponins, given a Plavix load of 600 mg, aspirin 324, started on a heparin drip, initial EKG showed T wave inversions lateral leads, nonspecific ST elevation in V3, he was found to be hypertensive blood pressure 228/109, started on nitroglycerin drip, remains hypertensive systolics 220 diastolic 100s when I examined him in the ICU, his hemoglobin is 7.2, he tells me he has had a colonoscopy within the last few years, no specific findings, denies any bloody or black stools, interestingly his ESR is 91, his CRP is 89.6, and his D-dimer is 1.81, denies0.? Any calf pain, any calf swelling but does report bilateral lower extremity swelling, he does report drug use in the past does not report current IV Dilaudid use, last use was a few weeks ago, he has been reporting chills, and low back pain, he reports a history of hepatitis C for which she received treatment, he was also given 40 of Lasix, was given 10 of hydralazine, his magnesium was 1.4 was replaced with magnesium, potassium was low which was replaced, was given his home, Mark, was given a total of 80 mg of Lasix, placed on nicotine patch, currently patient is alert oriented x4, following all commands, systolic blood pressure 220 diastolic 110, not heparin drip, normal sinus rhythm, telemetry, on room air, currently complaining of chest pain 8 out of 10, Hospital Course Hospital Course Patient was admitted to the ICU for further evaluation and management for possible hypertensive urgency, acute on chronic anemia, possible GI bleed, acute versus chronic kidney disease along with non-ST elevation [place] versus demand ischemia. He was started on IV nitrate, treatment as per ACS protocol. He was not started on heparin drip given significant anemia on admission. He was transfused 2 unit of PRBC after which his hemoglobin remained stable. Surgery and cardiology were consulted. He underwent EGD and colonoscopy on 03/06 in which she was found to have significant erosive gastritis without active bleeding. Given concerns for possibility of non-ST elevation [place] versus demand ischemia he underwent cardiac stress test because he was at a higher risk of CHERELLE on 03/07 in which he was found to have small area of ischemia in inferior wall for which he was advised medical management. Patient's hospitalization was complicated by difficult to control high blood pressures for which he was started on multiple oral antihypertensives and nitro drip was weaned off gradually. There were concerns for possibility of discitis for which she underwent multiple spine CT scan which were negative for discitis but concerning for significant spinal stenosis. During hospitalization patient also showed pain medication seeking behavior. His pain was difficult to control and he was being transitioned from IV to oral pain medication. While being transitioning from IV to oral pain medication patient became agitated, abusive, disruptive to his and other patients care. Patient was counseled in detail the reason for switch of the medication but he continued to be in uncooperative and disruptive behavior hence he has been discharged home on multiple antihypertensives, Protonix twice daily, Carafate ACHS, baby aspirin, statin. Appointment has been made and described in detail to patient to follow-up with outpatient primary care provider. Patient is also counseled against use of IV pain medication. Patient was also counseled to follow-up with Dr. Prescott for further work-up and management of chronic back pain. By the time of discharge patient did not want to follow any instructions and just wanted to be discharged home. Medications has been sent over to pharmacy. Mclean catheter was removed. Physical Exam Narrative: General: No acute distress, AO x3, laying comfortably in bed, HEENT: PERRLA, pupils bilaterally equal and reactive Chest: Normal vesicular breath sounds, fine crackles bilaterally in lower zone, equal good air entry bilaterally CVS: S1-S2 regular, soft pansystolic murmur at apex, no tachycardia, no gallops, no rubs Abdomen: Soft, nontender, no organomegaly, bowel sounds present Neuro: No focal deficits, no facial deformity, AO x3, power 5/5 in all limbs Urinary Catheter Management: Mclean: Cath Placed During This Visit: yes Reason for Continuing Indwelling Catheter: Other Urinary Catheter Date of Insertion: 03/04/23 Urinary Catheter Time of Insertion: 01:25 Discharge Data Studies Completed and Pending Completed Studies During Hospitalization Category Date Time Status CT cervical spin wo con* [id number] Routine Cat Scan 03/04/23 14:[address] chest abdomen pelvis [[place] [id number] Cat Scan 03/04/23 08:55 Completed ] Routine CT lumbar spine wo con* [id number] Routine Cat Scan 03/04/23 14:[address] thoracic spin wo con* [id number] Routine Cat Scan 03/04/23 14:00 Completed Sestamibi Stress Test Request Routine Exams 03/06/23 08:48 Draft XR chest 1V portable [id number] Routine Exams 03/03/23 23:05 Completed NM placido perf SPECT r/s* [id number] Routine Nuc Med 03/07/23 08:00 [place] [id number] Routine Ultrasound 03/03/23 23:05 Completed CV. echo complete* [id number] Routine Ultrasound 03/03/23 23:05 Completed US renal BI* [id number] Routine Ultrasound 03/04/23 23:33 Completed Pending at discharge Category Date Time Status Blood Culture Stat Lab 03/03/23 23:48 Results Complete Blood Count w/Auto AM LABS Lab 03/09/23 04:00 Ordered Comprehensive Metabolic Panel AM LABS Lab 03/09/23 04:00 Ordered MAG [Magnesium] AM LABS Lab 03/09/23 04:00 Ordered PHOS [Phosphorus] AM LABS Lab 03/09/23 04:00 Ordered Sputum Culture and Gram Stain Stat Lab 03/03/23 23:37 Uncollected Radiology Impressions Chest X-Ray 03/03/23 23:05 IMPRESSION: Suspected right lower lobe pneumonia. CT abd/Chest/Pelvis MPRESSION: 1.? Moderate bilateral pleural effusions with patchy filtrates in the lung bases. Recommend correlation for pneumonia. Interstitial edema in the lung bases. 2.? Subsegmental atelectasis in RIGHT middle lobe. 3.? A few incidental hepatic cysts and renal cysts. 4.? No hydronephrosis in either kidney. 5.? Mild fecal retention in the RIGHT colon. 6.? Mclean catheter. 7.? Mild rectosigmoid constipation. Dictated By: Calvin Downs MD Stress test PERFUSION FINDINGS ?Small sized perfusion abnormality of mild severity of mid to apical inferior ?wall on stress images. ?FUNCTIONAL RESULTS ? ? (calculated via Gated SPECT) ? Stress Image LV EF (%):? ? 49 ? Stress EDV (mL):204? TID:? 1.18 ? Stress ESV (mL):105 ?FUNCTIONAL FINDINGS: ?The left ventricle is normal in size. Transient Ischemia Dilatation of 1.18. ?The left ventricular ejection fraction is mildly reduced with a value of 49%. ?Mild global hypokinesis ?Increased end-diastolic and end-systolic volumes. ?IMPRESSIONS ?1. Small sized perfusion abnormality of mild severity of mid to apical inferior ?garcia. This may represent small area of ischemia in RCA territory. ?2. The left ventricular ejection fraction is mildly reduced with a value of ?49%. Mild global hypokinesis. ?3. EKG portion of the study will be reported separately. ?4. Scan indicates low risk for cardiac events. ?Erlinda Saini MD ?(Electronically Signed) ?Final Date:? ? ? 07 March 2023 ? 12:16 Laboratory Results WBC 6.09 10^3/uL (3.29-11.43) 03/08/23 03:30 RBC 2.79 10^6/uL (3.85-5.65) L 03/08/23 03:30 Hgb 8.10 g/dL (11.27-16.99) L 03/08/23 03:30 Hct 25.3 % (37-53) L 03/08/23 03:30 MCV 90.7 fl (82-101) 03/08/23 03:30 MCH 29.0 pg (27-33) 03/08/23 03:30 MCHC 32.0 g/dL (30-55) 03/08/23 03:30 RDW 14.8 % (12.1-15.1) 03/08/23 03:30 Plt Count 220 10^3/cmm (157-399) 03/08/23 03:30 MPV 9.5 fL (7.4-10.4) 03/08/23 03:30 Neut % (Auto) 58.2 % 03/08/23 03:30 Lymph % (Auto) 31.2 % 03/08/23 03:30 [place] % (Auto) 6.4 % 03/08/23 03:30 Eos % (Auto) 2.6 % 03/08/23 03:30 Baso % (Auto) 0.8 % 03/08/23 03:30 Neut # (Auto) 3.54 10^3/uL (1.8-7.7) 03/08/23 03:30 Lymph # (Auto) 1.9 10^3/uL (0.8-4.8) 03/08/23 03:30 [place] # (Auto) 0.4 10^3/uL (0.2-0.9) 03/08/23 03:30 Eos # (Auto) 0.2 10^3/uL (0.0-0.8) 03/08/23 03:30 Baso # (Auto) 0.1 10^3/uL (0.0-0.1) 03/08/23 03:30 Nucleated RBC % (auto) 0 % 03/08/23 03:30 Nucleated RBCs # 0.0 /100WBC 03/08/23 03:30 ESR 15 mm/hr (0-10) H 03/03/23 23:48 PT 13.90 SECONDS (12.1-14.9) 03/03/23 23:48 INR 1.04 (0.8-1.2) 03/03/23 23:48 APTT 32.8 SECONDS (23.9-36.7) D 03/04/23 04:57 Specimen Type Arterial 03/03/23 23:13 Sample Site Radial, right 03/03/23 23:13 ABG pH 7.46 (7.35-7.45) H 03/03/23 23:13 ABG pCO2 33.2 mmHg (35-45) L 03/03/23 23:13 ABG pO2 73.5 mmHg (80.0-100.0) L 03/03/23 23:13 ABG HCO3 23.4 mmol/L (22-26) 03/03/23 23:13 ABG Base Excess -0.6 mmol/L (-2.0-2.0) 03/03/23 23:13 Gunnar Test Pos 03/03/23 23:13 Hematocrit 14.2 % (42-52) L 03/03/23 23:13 O2 Delivery Device Room air 03/03/23 23:13 Salon/Spa Manager ID [email or web address] 03/03/23 23:13 Sodium 138 mmol/L (136-145) 03/08/23 03:30 Potassium 3.8 mmol/L (3.5-5.1) 03/08/23 03:30 Chloride 105 mmol/L (98-107) 03/08/23 03:30 Carbon Dioxide 23 mmol/L (22-29) 03/08/23 03:30 Anion Gap 13.8 (5-19) 03/08/23 03:30 BUN 48 mg/dL (8-23) H 03/08/23 03:30 Creatinine 3.5 mg/dL (0.7-1.2) H 03/08/23 03:30 GFR Calculation 17.7 mL/min (90-130) L 03/08/23 03:30 Glucose 139 mg/dL (65-115) H 03/08/23 03:30 POC Glucose 265 mg/dL (70-110) H 03/08/23 11:03 Estimat Average Glucose 151 03/03/23 23:48 Hemoglobin A1c 6.9 % (4.0-6.0) H 03/03/23 23:48 Calculated Osmolality 301 mOsm/kg (285-295) H 03/08/23 03:30 Lactic Acid 0.7 mmol/L (0.5-2.2) 03/03/23 23:48 Calcium 6.9 mg/dL (8.5-10.5) L 03/08/23 03:30 Phosphorus 4.9 mg/dL (2.5-4.5) H 03/08/23 03:30 Magnesium 2.0 mg/dL (1.7-2.3) 03/08/23 03:30 Iron 25 ug/dL (59-158) L 03/03/23 23:48 Iron Cancelled 03/03/23 23:48 TIBC 175 mcg/dl 03/03/23 23:48 % Saturation 14.2 % (20-50) L 03/03/23 23:48 Unsat Iron Binding 150 ug/dL (112-347) 03/03/23 23:48 Ferritin 496 ng/mL (30-400) H 03/03/23 23:48 Total Bilirubin 0.2 mg/dL (0.15-1.2) 03/08/23 03:30 AST 12 U/L (0-40) 03/08/23 03:30 ALT 8 U/L (0-41) 03/08/23 03:30 Alkaline Phosphatase 58 U/L (40-130) 03/08/23 03:30 Creatine Kinase 504 U/L (39-308) H* 03/03/23 23:48 Creatine Kinase Cancelled 03/03/23 23:48 Troponin T Baseline 117 ng/L (0-15) H* 03/03/23 23:48 Troponin T 120 Minute 120.7 ng/L (0-15) H 03/04/23 01:37 Delta Troponin T 3.7 ABS# (0-10) 03/04/23 01:37 Troponin T Hi Sens 6Hr 116.8 ng/L (0-15) H 03/04/23 05:32 Troponin T Hi Sens 6Hr Delta -0.2 ng/L (0-12) L 03/04/23 05:32 C-Reactive Protein 57.4 mg/L (0.0-4.9) H 03/04/23 03:00 NT-Pro-B Natriuret Pep 69718 pg/mL (0-125) H 03/04/23 03:00 Total Protein 5.1 g/dL (6.6-8.7) L 03/08/23 03:30 Albumin 2.3 g/dL (3.5-5.2) L 03/08/23 03:30 Globulin 2.8 g/dL (1.3-4.6) 03/08/23 03:30 Triglycerides 75 mg/dL (0-150) 03/03/23 23:48 Cholesterol 136 mg/dL (0-200) 03/03/23 23:48 LDL Cholesterol, Calc 78 mg/dL (50-129) 03/03/23 23:48 HDL Cholesterol 43 mg/dL (60-100) L 03/03/23 23:48 LDL/HDL Ratio 1.81 RATIO (0.00-3.22) 03/03/23 23:48 Cholesterol/HDL Ratio 3.16 mg/dL (1.0-5.00) 03/03/23 23:48 Vitamin B12 385 pg/mL (232-1245) 03/03/23 23:48 Folate 6.2 ng/mL (4.5-32.2) 03/03/23 23:48 Procalcitonin 0.33 ng/mL (0-0.5) 03/04/23 03:00 TSH 2.29 uIU/mL (0.27-4.20) 03/03/23 23:48 Ur Eosinophil Smear 0 (0-0) 03/04/23 16:53 Urine Eosinophils No eosinophils seen 03/04/23 16:53 Ur Random Sodium 106 mmol/L 03/04/23 16:53 Ur Random Potassium 19 mmol/L 03/04/23 16:53 Ur Random Chloride 108 mmol/L 03/04/23 16:53 Urine Creatinine 38 mg/dL (39-259) L 03/04/23 16:53 Nasal Influ A H1 2009 PCR Not detected (NOT DETECT) 03/04/23 00:25 Urine Opiates Screen Positive ng/mL (Negative) H 03/04/23 01:25 Ur Barbiturates Screen Negative ng/mL (Negative) 03/04/23 01:25 Ur Phencyclidine Scrn Negative ng/mL (Negative) 03/04/23 01:25 Ur Amphetamines Screen Negative ng/mL (Negative) 03/04/23 01:25 U Benzodiazepines Scrn Negative ng/mL (Negative) 03/04/23 01:25 Urine Cocaine Screen Negative ng/mL (Negative) 03/04/23 01:25 U Marijuana (THC) Screen Negative ng/mL (Negative) 03/04/23 01:25 Adenovirus (PCR) Not detected (NOT DETECT) 03/04/23 00:25 C. pneumoniae DNA (PCR) Not detected (NOT DETECT) 03/04/23 00:25 Coronavirus 229E (PCR) Not detected (NOT DETECT) 03/04/23 00:25 Hepatitis A IgM Ab Non-reactive (Nonreactive) 03/03/23 23:48 Hep Bs Antigen Non-reactive (Nonreactive) 03/03/23 23:48 Hep B Core IgM Ab Non-reactive (Nonreactive) 03/03/23 23:48 Hepatitis C Antibody Reactive (Nonreactive) H 03/03/23 23:48 HCV RNA (PCR) IUs/ml <1.18 not detected Log IU/mL (NOT DETECTED) 03/04/23 01:05 HCV RNA (PCR) IU log10 <15 not detected IU/mL (NOT DETECTED) 03/04/23 01:05 HIV 1&2 Ab & HIV 1 Ag Non-reactive (Non-Reactiv) 03/03/23 23:48 HIV 1&2 Antibody Non-reactive (Non-Reactiv) 03/03/23 23:48 Human Metapneumovir PCR Not detected (NOT DETECT) 03/04/23 00:25 Influenza A (H1) PCR Not detected (NOT DETECT) 03/04/23 00:25 Influenza A (H3) PCR Not detected (NOT DETECT) 03/04/23 00:25 Influenza Type A (PCR) Not detected (NOT DETECT) 03/04/23 00:25 Influenza Type B (PCR) Not detected (NOT DETECT) 03/04/23 00:25 M. pneumoniae (PCR) Not detected (NOT DETECT) 03/04/23 00:25 Parainfluenza 1 (PCR) Not detected (NOT DETECT) 03/04/23 00:25 Parainfluenza 2 (PCR) Not detected (NOT DETECT) 03/04/23 00:25 Parainfluenza 3 (PCR) Not detected (NOT DETECT) 03/04/23 00:25 Parainfluenza 4 (PCR) Not detected (NOT DETECT) 03/04/23 00:25 RSV Type A (PCR) Not detected (NOT DETECT) 03/04/23 00:25 RSV Type B (PCR) Not detected (NOT DETECT) 03/04/23 00:25 Entero/Rhino (PCR) Not detected (NOT DETECT) 03/04/23 00:25 SARS-CoV-2 (PCR) Not detected (NOT DETECT) 03/04/23 00:25 MRSA (PCR) Not detected (NOT DETECTED) 03/05/23 12:00 Blood Type O Negative 03/04/23 03:57 Rho(D) Type Negative 03/04/23 03:57 Antibody Screen Negative 03/04/23 03:57 Crossmatch See Detail 03/04/23 03:57 Vitals Last Vital Signs Temp 98.1 F 03/08/23 11:24 Pulse 57 L 03/08/23 11:24 Resp 12 03/08/23 11:24 BP 152/65 03/08/23 11:24 Pulse Ox 90 03/08/23 11:24 O2 Del Method Room Air 03/08/23 09:29 O2 Flow Rate 2 03/06/23 07:57 Discharge Plan Discharge Patient Disposition: Home Condition: Stable Prescriptions: New atorvastatin 40 mg Tablet 40 mg PO BEDTIME Qty: 30 0RF carvedilol 25 mg Tablet 25 mg PO BID Qty: 60 0RF aspirin 81 mg Tablet,Delayed Release (Dr/Ec) 81 mg PO DAILY Qty: 30 0RF amlodipine 10 mg Tablet 10 mg PO Q24H Qty: 30 0RF doxazosin 4 mg Tablet 4 mg PO BID Qty: 60 0RF gabapentin 100 mg Capsule 200 mg PO TID 30 Days Qty: 180 0RF hydralazine 100 mg tablet 100 mg PO TID Qty: 90 0RF isosorbide mononitrate 120 mg tablet extended release 24 hr 120 mg PO BID Qty: 60 0RF clonidine HCl 0.3 mg tablet 0.3 mg PO TID Qty: 90 0RF (DME) lancets Misc See Rx Instructions .ROUTE .MEDSUPPLY Qty: 100 0RF Rx Instructions: As directed (DME) Blood Glucose Monitoring Kit See Rx Instructions .ROUTE .MEDSUPPLY Qty: 1 0RF Rx Instructions: As directed (DME) BD Ultra-Fine Micro Pen Needle 32 gauge x 1/4 needle See Rx Instructions .ROUTE .MEDSUPPLY Qty: 50 0RF Rx Instructions: As directed Lantus Solostar U-100 Insulin 100 unit/mL (3 mL) insulin pen 15 unit SUBCUT DAILY Qty: 15 0RF sucralfate 100 mg/mL Suspension 1 g PO Q12H Qty: 1000 0RF Protonix 40 mg tablet,delayed release (DR/EC) 40 mg PO Q12H Qty: 60 0RF Discontinued albuterol sulfate 90 mcg/actuation HFA aerosol inhaler 2 puff INHALATION Q6H PRN (Reason: wheezing) lisinopril-hydrochlorothiazide 20-25 mg tablet 1 tab PO DAILY Discharge Orders: Discharge Order (Routine); Ordered 03/08/23 Ordered By: Nilton Turpin Referrals: Yasmeen Erazo FNP [Nurse Practitioner] - 03/13/23 9:00 am (Please arrive 15 minutes early to fill out any paperwork. ) Christian Prescott DO [Physician] - 2 weeks Carolina Campos FNP [Nurse Practitioner] - 1 month Discharge Diet: Cardiac, Diabetic and Low Salt Discharge Activity: Resume usual activity and Increase activity as tolerated Patient Instructions: Clonidine (By mouth), Aspirin (By mouth) (Henrique Extra Strength, Henrique Aspirin [facility],..., Doxazosin (By mouth) (Cardura, Cardura XL), Gabapentin (By mouth), Hydralazine (By mouth), Amlodipine (By mouth), Atorvastatin (By mouth), Carvedilol (By mouth) (Coreg, Coreg CR, Hypertenevide-12.5), Insulin Glargine (By injection) (Lantus, Lantus SoloStar, Toujeo, Semglee), GI Discharge Instructions, Opioid Safety Activity Restrictions/Additional Instructions: Please try to avoid over the street IV pain medications. Please follow-up with Dr. Prescott from orthopedic surgery for further evaluation of chronic back pain. You should follow-up with your primary care provider for whom the appointment has been set on 03/13. Patient would eventually benefit from follow-up with pain clinic. You should follow-up with cardiology for further work-up for ACS. Please be compliant with medications. Discharge Attestations Time Spent in Discharge Care*: greater than 30 min Specific Discharge Activities: educating patient, educating and/or supporting family/caregiver, discussing with pcp/other providers, discussing with case filler/social workers/dc planners, documenting/other paperwork and evaluating patient/reviewing data Status at Discharge: Cognitive status at discharge: cognitively intact, Behavioral status at discharge: can be uncooperative and other (agitated), Functional status at discharge: uses cane/walker, Overall status at discharge: patient is back to baseline Quality Metrics Clinical Quality Measures [ No reported AMI, CVA or VTE this stay] Coding Level of Care Code 57359 Total time (in minutes) for Discharge: 60 Diagnoses Elevated troponin R79.89 Diastolic congestive heart failure I50.30 Chronic kidney disease N18.9 HTN (hypertension) I10 IV drug abuse F19.10 Right lower lobe pulmonary infiltrate R91.8 Unstable angina I20.0 Hypokalemia E87.6 Hypomagnesemia E83.42 Hypertensive emergency I16.1 Acute renal failure N17.9 Drug-seeking behavior Z76.5 Non-compliance Z91.199
[2023-03-08] MEDS: insulin lispro 100 unit/1 mL SUBCUT (12:35)
--- NOTE | 2023-03-08 12:56 | PC.NURSE ---
pt is upset when the doctor informed him that his IV pain medicine has been changed to oral. Pt is starting to yell and became agitated wanting to go home. IV line and dupree catheter are removed then pt started walking out in his room. nurse informed pt that new meds are sent to [facility] in [place] as his choice. provided pt with his discharge papers, pt signed.
== END 2023-03-08 12:55 | disposition home or self-care (01) | DRG 391 ==
PROVIDERS: Family Medicine; Surgery; Admitting Provider Student in an Organized Health Care Education/Training Program; PCP Nurse Practitioner Family; Visit Provider Student in an Organized Health Care Education/Training Program
PROC: 0DJ08ZZ Inspection of Upper Intestinal Tract, Via Natural or Artificial Opening Endoscopic (ICD-10-PCS; CPT 43235; principal; 2023-03-06 07:00)
PROC: 0DJD8ZZ Inspection of Lower Intestinal Tract, Via Natural or Artificial Opening Endoscopic (ICD-10-PCS; CPT 45378; 2023-03-06 07:00)
DX: K29.00 Acute gastritis without bleeding (principal); I50.31 Acute diastolic (congestive) heart failure; N17.9 Acute kidney failure, unspecified; I24.89 Other forms of acute ischemic heart disease; I16.1 Hypertensive emergency; I13.0 Hypertensive heart and chronic kidney disease with heart failure and stage 1 through stage 4 chronic kidney disease, or unspecified chronic kidney disease; N18.9 Chronic kidney disease, unspecified; E11.22 Type 2 diabetes mellitus with diabetic chronic kidney disease; E11.42 Type 2 diabetes mellitus with diabetic polyneuropathy; Z91.148 Patient's other noncompliance with medication regimen for other reason; Z86.19 Personal history of other infectious and parasitic diseases; D63.1 Anemia in chronic kidney disease; G89.29 Other chronic pain; M48.061 Spinal stenosis, lumbar region without neurogenic claudication; F32.A Depression, unspecified; Z89.411 Acquired absence of right great toe; Z89.421 Acquired absence of other right toe(s); F17.200 Nicotine dependence, unspecified, uncomplicated; F11.10 Opioid abuse, uncomplicated; K63.5 Polyp of colon; Z11.52 Encounter for screening for COVID-19; E87.70 Fluid overload, unspecified; E87.6 Hypokalemia; E83.42 Hypomagnesemia; R70.0 Elevated erythrocyte sedimentation rate
CPT/HCPCS: 36415; 36416; 36430; 36600; 43235; 45378; 51702; 71045; 71250; 72125; 72128; 72131; 74176; 76770; 78452; 80048; 80053; 80061; 80074; 80306; 82274; 82436; 82550; 82570; 82607; 82728; 82746; 82803; 82962; 83036; 83540; 83550; 83605; 83735; 83880; 84100; 84133; 84145; 84300; 84443; 84484; 85014; 85018; 85025; 85049; 85610; 85651; 85730; 85999; 86140; 86403; 86850; 86900; 86920; 87040; 87486; 87522; 87581; 87633; 87641; 87806; 93005; 93017; 93306; 93970; 94640; 96372; 96375; 96376; 97116; 97161; A9500; C9113; J0696; J1170; J1644; J1815; J1940; J2704; J2785; J3475; J3480; J3490; J7030; P9016